=== PATIENT | female | born 1970 | race Caucasian/White ===

== ENCOUNTER 2023-11-29 06:33 | Emergency (ER) | payer BC, SELFPAY ==
[2023-11-29 06:39] VITALS: BP 122/99
--- NOTE | 2023-11-29 07:11 | EDRN ---
Pt received in rm 10, recent dx of URI, on Zpack, c/o burning sensation up her spine with intermittent left leg tingling. Pt also c/o left sided abd pain which she had 'for a while' and recently saw a GI for. NAD noted, awaiting MD mendes.
[2023-11-29 07:15] LABS: COVID-19 Antigen Negative (Negative)
--- NOTE | 2023-11-29 07:59 | ED.GENMED ---
History of Present Illness
<Dominga Eli PA-C - Last Filed: 11/29/23 13:39>
General
Chief Complaint: Weakness
Source: patient
Exam Limitations: none
Time Seen by Provider: 11/29/23 07:05
Nursing documentation reviewed up to this point in time: agreed with
Travel History
Have you had any contact with someone who has COVID-19?: Yes
Comment: daughter
Do you have any symptoms of coronavirus? Fever > 100 degrees, chills, cough, shortness of breath, sore throat, loss of taste or smell, muscle aches, or headache?: Yes
Symptoms:: cough, sore throat, fever
History of Present Illness
History of Present Illness:
53y/o F with h/o celiac, sleep apnea
started 5 days ago feeling some chest discomfort, thought she should come to the hospital but never did
the ches tpain resolve fdand then she developed some URI sxs, nasal congestion, cough with productive mucus;
she had fever to 103
went to pcp 2 days ago and tested neg for flu and covid
was sent home with zithromax
she has taken tylenol cold and sinus for a few days eery 4 hours, 1 tab; and last took dose 2 am
she woke up at 530 am with a shooting burning feeling in her back that shot up to the top of the back and then she felt anxious and lightheaded, broke out in a sweat and then felt like her left arm an dleg were weaker than right side
she called fo rher to take her to the [facility]
she was able to stand despite feeling that her left side was weaker, she never had any
Past History
<Dominga Eli PA-C - Last Filed: 11/29/23 13:39>
Past History
ED Past Medical History: Other (renal calc, neck/back pain, cholecystectomy, anemia, celiac disease, possible hyperparathyroid Vs Sjogrens); Negative HTN, Hypercholesterolemia, IDDM or NIDDM
ED Past Surgical History: Cholecystectomy, Gynecological and Urological (Ureteric stone removal 2000, [address] Marley.)
Social History
Tobacco: Non-smoker
Alcohol: None
Drug: None
Personal:
Living: with family
Employment: Employed ([employer])
Family History
Family History: CAD; Negative Sudden
Phy Exam
<Dominga Eli PA-C - Last Filed: 11/29/23 13:39>
Physical Exam
Physical Exam:
GENERAL: Alert , in no apparent distress, nontoxic
HEAD: NCAT
EYE: pupils equal and reactive, no nystagmus, no photophobia
NECK: Supple,full rom, nontender
ENT: pharynx erythematous, no sinus tenderness, + nasal congestion, ears normal, tolerating secretions
CARDIAC: Regular rate and rhythm . no edema
LUNGS: Clear breath sounds bilaterally, no acute respiratory distress, no wheezes/rales/rhonchi
ABDOMEN: Soft, without focal tenderness, no r/g, no cvat
NEUROLOGICAL: Alert and orientedx 4, cn intact, no facial asymmetry, 5/5 strength in UE/LE, sensation intact, romberg neg, ambulates without assistance, neg pronator drift
SKIN: Warm and dry, skin intact.
MUSCULOSKELETAL: No edema, well perfused.
PSYCH: Normal and appropriate interaction.
Course
<Dominga Eli PA-C - Last Filed: 11/29/23 13:39>
Orders/Labs/Results
Orders:
Orders
11/29/23 06:48
COVID-19 Antigen Urgent
Source: Nasal Swab
Influenza A+B Rapid Molecular Urgent
ELISHA Source: Nasal Swab
Specimen Description:
11/29/23 07:37
Electrocardiogram (*1) Urgent
Reason for Study: Other
Other Reason for Exam: sepsis
Cardiac Monitoring- Treatment ONCE
EKG- Treatment ONCE
0.9% Sodium Chloride 1000 ml [Nss] 1,000 ml IV BOLUS
CR Chest - 2 Views Urgent
Comment:
Reason For Exam: cough, fatigue
11/29/23 07:57
Complete Blood Count/With Diff Urgent
Comprehensive Metabolic Panel Urgent
Lactic Acid Urgent
Magnesium Urgent
Troponin I Urgent
11/29/23 08:31
CT Chest/abd/pelvis Angio W/wo Urgent
Comment:
Reason For Exam: chest pain, back pain, weakness l arm
CT Head W/o Iv Contrast Urgent
Comment:
Reason For Exam: weakness left arm
11/29/23 10:01
Potassium Chloride [KCl] 20 meq PO NOW STA
Abnormal Lab Results
11/29/23
07:57
Absolute Neuts (auto) 7.1 H 10^3/uL
(1.4-6.5)
Lymphocytes % 17.9 L %
(20.5-51.1)
Potassium 3.3 L mmol/L
(3.5-5.1)
Glucose 108 H mg/dl
(70-99)
Lactic Acid 0.6 L mmol/L
(0.7-2.0)
Total Protein 6.0 L g/dl
(6.3-8.2)
11/29/23 07:57
11/29/23 07:57
Vital Signs
Initial and Last Documented VS:
Initial Vital Signs
Temp Pulse Resp BP Pulse Ox
98.6 F 96 20 122/99 97
11/29/23 06:39 11/29/23 06:39 11/29/23 06:39 11/29/23 06:39 11/29/23 06:39
Last Documented Vital Signs
Temp Pulse Resp BP Pulse Ox
98.6 F 74 16 132/83 98
11/29/23 06:39 11/29/23 10:10 11/29/23 10:10 11/29/23 10:10 11/29/23 10:10
<Angelo Garcia MD - Last Filed: 11/29/23 09:42>
Orders/Labs/Results
Orders:
Orders
11/29/23 06:48
COVID-19 Antigen Urgent
Source: Nasal Swab
Influenza A+B Rapid Molecular Urgent
ELISHA Source: Nasal Swab
Specimen Description:
11/29/23 07:37
Electrocardiogram (*1) Urgent
Reason for Study: Other
Other Reason for Exam: sepsis
Cardiac Monitoring- Treatment ONCE
EKG- Treatment ONCE
0.9% Sodium Chloride 1000 ml [Nss] 1,000 ml IV BOLUS
CR Chest - 2 Views Urgent
Comment:
Reason For Exam: cough, fatigue
11/29/23 07:57
Complete Blood Count/With Diff Urgent
Comprehensive Metabolic Panel Urgent
Lactic Acid Urgent
Magnesium Urgent
Troponin I Urgent
11/29/23 08:31
CT Chest/abd/pelvis Angio W/wo Urgent
Comment:
Reason For Exam: chest pain, back pain, weakness l arm
CT Head W/o Iv Contrast Urgent
Comment:
Reason For Exam: weakness left arm
11/29/23 10:01
Potassium Chloride [KCl] 20 meq PO NOW STA
Abnormal Lab Results
11/29/23
07:57
Absolute Neuts (auto) 7.1 H 10^3/uL
(1.4-6.5)
Lymphocytes % 17.9 L %
(20.5-51.1)
Potassium 3.3 L mmol/L
(3.5-5.1)
Glucose 108 H mg/dl
(70-99)
Lactic Acid 0.6 L mmol/L
(0.7-2.0)
Total Protein 6.0 L g/dl
(6.3-8.2)
11/29/23 07:57
11/29/23 07:57
Vital Signs
Initial and Last Documented VS:
Initial Vital Signs
Temp Pulse Resp BP Pulse Ox
98.6 F 96 20 122/99 97
11/29/23 06:39 11/29/23 06:39 11/29/23 06:39 11/29/23 06:39 11/29/23 06:39
Last Documented Vital Signs
Temp Pulse Resp BP Pulse Ox
98.6 F 74 16 132/83 98
11/29/23 06:39 11/29/23 10:10 11/29/23 10:10 11/29/23 10:10 11/29/23 10:10
<Dominga Eli PA-C - Last Filed: 11/29/23 13:39>
MDM/Problems Addressed
Differential Diagnosis Includes:
influenza, covid, electrlyte disturbance, aortic dissection
much less likely stroke
MDM/Problems Addressed:
53 y/o F with h/o celiac, anxuiety
here for days of URI sxs
then woke up to a burning back pain and anxiety feeling followed by weakness left arm or leg
no headache, neck pain, dizziness, vision changes, cp, sob
she had chest pain earlier this week
on exam pt looks nontoxic but has URI
neuro totally intact
tested pos for flu a which is likely to explain most symptoms
however given her recent episode chest pain and now back pain this am with neurosymptoms, eval with CTA c/a/p
neg for dissection
some incidental findings not related to sypmtoms
head ct neg
pt had no objective weakness here
sinus inflammation on ct
already on zithromax, not likely to cover bact dsinus infection well, however probably mroe viral anyway with flu +
offered doxy but pt doesn't tolerate other abx and declined
<Dominga Eli PA-C - Last Filed: 11/29/23 13:39>
*Critical Care Note
Total Time (30-74mins, 75-104mins- exclusive of procedures): Not Applicable
ED Attending Note
<Dominga Eli PA-C - Last Filed: 11/29/23 13:39>
-
Portions of this chart may have been created with voice recognition software.� Occasional wrong word or��sound alike� substitutions may have occurred due to the inherent limitations of voice recognition software.
<Angelo Garcia MD - Last Filed: 11/29/23 09:42>
ED Attending Note
Patient seen and examined by attending physician: Yes
I performed the substantive portion of visit, reviewed & personally made and approve the management plan that is documented in note by myself or WOODY.: Yes
ED Attending Note:
53-year-old female started with chest pain 5 days ago. This lasted a few hours. Later that day she started getting flulike symptoms aches myalgias cough congestion. Those symptoms have continued. She was tested for COVID and flu 2 days ago that
was negative. This morning however she developed a shooting like sharp sensation upper back. This was followed by weakness to the left arm and left leg that was transient and lasted about an hour. No facial droop no speech issues no visual
issues. Patient has no acute neurologic symptoms now. No unusual headache complaining of flulike symptoms of myalgias ache and cough.
On exam patient is nontoxic in no distress. She has nasal congestion. Lungs are clear and equal. Heart regular rate and rhythm no murmur. She has no carotid bruit. Abdomen is nontender. She is nonfocal. She has no drift. Lower extremity
strength is normal speech is normal. Cranial nerves II through XII intact.
Influenza test is positive. Likely her symptoms are all influenza related although admittedly her transient asymmetrical weakness is unusual. Because of the chest pain recently followed by this sharp back pain I dissection study was ordered. Head
CT was ordered. If all stable patient is stable for discharge to follow-up
Discharge Plan
Departure
Patient Disposition: Home (Routine Discharge)
Date of Disposition: 11/29/23
Time of Disposition: 10:13
Patient with high blood pressure during this ER visit?: No
Condition: Fair
Covid-19: Not Applicable
Discharge Problem:
Influenza A, Sinusitis
Instructions: Flu, Adult (DC), Sinusitis, Adult (DC)
Prescriptions:
No Action
multivitamin with folic acid [Tab-A-Khang] 1 TABLET tablet
1 tab PO Q48H
ferrous sulfate [FeroSul] 325 MG tablet
325 mg PO WEEKLY
metoprolol succinate 25 MG tablet extended release 24 hr
25 mg PO 1800
Patient Comments:
reports not taking
cholecalciferol (vitamin D3) 1,000 UNITS tablet
1,000 units PO DAILY
ondansetron 4 mg tablet,disintegrating
4 mg PO Q8H PRN (Reason: nausea and vomiting) Qty: 10 0RF
Referrals:
Aris Shaikh, DO [Family Provider] - Follow up in 5-7 days
Activity Restrictions/Additional Instructions:
YOU TESTED POSITIVE FOR THE FLU WHICH IS LIKELYT HE CAUSE OF ALL OF YOUR SYMPTOMS
WE DID EVALUATE YOU WITH CAT SCANS OF YOUR HEAD AND CHEST/ABDOMEN/PELVIS WHICH SHOWED SOME INCIDENTAL FINDINGS BUT NO CONCERNING CAUSES FOR YOUR WEAKNESS AND CHEST PAIN
YOU HAD SOME SINUS INFLAMMATION
TAKE YOUR ANTIBIOTICS
FLONASE, ZYRTEC ONCE A DAY WELL
DRINK FLUIDS, REST
RETURN FOR WORSENING SYMPTOMS
Interventions
Interventions:
*Risk Screen - Suicide Last Done: 11/29/23 07:04
*General Assessment Last Done: 11/29/23 07:08
*Neglect/Abuse Screening Last Done: 11/29/23 07:04
ED- Fall Risk Assessment Last Done: 11/29/23 10:21
*ED COVID-19 Vaccine History Last Done: 11/29/23 07:04
*Nursing Disposition Last Done: 11/29/23 10:21
ED- Cardiac Assessment Last Done: 11/29/23 07:09
ED- Neurological Assessment Last Done: 11/29/23 07:09
ED- Pulmonary Assessment Last Done: 11/29/23 07:09
Discharge Date and Time
Discharge Date/Time: 11/29/23 10:31
[2023-11-29 08:02] VITALS: BP 132/70
[2023-11-29] MEDS: NSS 1000 IV (08:03)
[2023-11-29 08:21] LABS: % Basophils 0.5 % (0-2); % Eosinophils 1.2 % (0-6); % Immature Granulocytes 0.3 % (0-0.5); % Lymphocytes 17.9 % (20.5-51.1); % Monocytes 5.6 % (1.7-9.3); % Neutrophils 74.5 % (42.2-75.2); Absolute Basophils 0.1 10^3/uL (0-0.2); Absolute Eosinophils 0.1 10^3/uL (0-0.7); Absolute Lymphocytes 1.7 10^3/uL (1.2-3.4); Absolute Monocytes 0.5 10^3/uL (0.1-0.6); Absolute Neutrophils 7.1 10^3/uL (1.4-6.5); Hematocrit 37.1 % (37.0-47.0); Hemoglobin 13.4 g/dL (12.0-16.0); Mean Corp Hgb Conc. 36.1 g/dL (33.0-37.0); Mean Corpuscular Hgb 29.5 pg (27.0-31.0); Mean Corpuscular Volume 81.5 fL (81.0-99.0); Mean Platelet Volume 8.5 fL (7.4-10.4); Nucleated Red Blood Cells % 0 %; Platelet Count 317 10^3/uL (130-400); Red Blood Cell Count 4.55 10^6/uL (4.20-5.40); Red Cell Dist. Width 12.1 % (11.5-14.5); White Blood Cell Count 9.5 10^3/uL (4.8-10.8)
[2023-11-29 08:28] LABS: Lactic Acid 0.6 mmol/L (0.7-2.0)
[2023-11-29 08:29] LABS: ALT (SGPT) 25 U/L (0-35); AST (SGOT) 23 U/L (14-36); Albumin 3.8 g/dl (3.5-5.0); Alkaline Phosphatase 76 U/L (38-126); Blood Urea Nitrogen 10 mg/dl (7-17); Calcium 9.1 mg/dl (8.4-10.2); Carbon Dioxide 30 mmol/L (22-30); Chloride 103 mmol/L (98-107); Glucose 108 mg/dl (70-99); Potassium 3.3 mmol/L (3.5-5.1); Sodium 137 mmol/L (135-145); Total Bilirubin 1.2 mg/dl (0.2-1.3); eGFR > 60.00
[2023-11-29 08:40] LABS: Troponin I < 0.012 ng/ml
[2023-11-29] MEDS: KCL 20 MEQ PO (10:07)
[2023-11-29 10:10] VITALS: BP 132/83
== END 2023-11-29 10:31 | disposition home or self-care (01) ==
LOC: EMR 06:33
PROVIDERS: Physician Assistant; EMERGENCY PHYSICIAN Emergency Medicine; FAMILY PHYSICIAN Internal Medicine
DX: J10.1 Influenza due to other identified influenza virus with other respiratory manifestations (principal); J32.2 Chronic ethmoidal sinusitis; J32.3 Chronic sphenoidal sinusitis; K90.0 Celiac disease; G47.30 Sleep apnea, unspecified; D64.9 Anemia, unspecified; E78.00 Pure hypercholesterolemia, unspecified; F41.9 Anxiety disorder, unspecified; Z82.49 Family history of ischemic heart disease and other diseases of the circulatory system; Z87.442 Personal history of urinary calculi; Z90.49 Acquired absence of other specified parts of digestive tract
CPT/HCPCS: 99284; 96360; 70450; 71046; 71275; 74174; 80053; 83605; 83735; 84484; 85025; 87502; 87811; 93005; Q9967

== ENCOUNTER → 2023-12-04 09:33 | Outpatient (REF) | payer BC, SELFPAY ==
[2023-12-04 11:14] LABS: ALT (SGPT) 28 U/L (0-35); AST (SGOT) 29 U/L (14-36); Albumin 4.4 g/dl (3.5-5.0); Alkaline Phosphatase 81 U/L (38-126); Amylase 68 U/L (30-110); Direct Bilirubin 0.5 mg/dl (0.0-0.4); Lipase 153 U/L (23-300); Total Bilirubin 1.1 mg/dl (0.2-1.3); Total Protein 6.7 g/dl (6.3-8.2)
[2023-12-04 11:19] LABS: Erythrocyte Sed Rate 14 mm/hour (0-20)
[2023-12-04 16:43] LABS: tTG IgA Antibody 3.2 EU/ml (0-19); tTG IgG Antibody 6.5 EU/ml (0-19)
[2023-12-06 00:02] LABS: IgA 126 mg/dl (70-400)
[2023-12-06 21:00] LABS: Endomysial IgA Antibody Titer <1:10 (<1:10)
== END ==
LOC: REG 09:33
PROVIDERS: ATTENDING PHYSICIAN Nurse Practitioner Family; FAMILY PHYSICIAN Internal Medicine
DX: R10.12 Left upper quadrant pain (principal); K90.0 Celiac disease
CPT/HCPCS: 36415; 80076; 82150; 82784; 83516; 83690; 85652; 86140; 86231

== ENCOUNTER → 2023-12-17 08:28 | Outpatient (REF) | payer BC, SELFPAY ==
[2023-12-17 09:18] LABS: % Basophils 1.1 % (0-2); % Eosinophils 2.4 % (0-6); % Immature Granulocytes 0.3 % (0-0.5); % Lymphocytes 31.2 % (20.5-51.1); % Monocytes 6.7 % (1.7-9.3); % Neutrophils 58.3 % (42.2-75.2); Absolute Basophils 0.1 10^3/uL (0-0.2); Absolute Eosinophils 0.2 10^3/uL (0-0.7); Absolute Lymphocytes 2.3 10^3/uL (1.2-3.4); Absolute Monocytes 0.5 10^3/uL (0.1-0.6); Absolute Neutrophils 4.4 10^3/uL (1.4-6.5); Hematocrit 41.6 % (37.0-47.0); Hemoglobin 14.3 g/dL (12.0-16.0); Mean Corp Hgb Conc. 34.4 g/dL (33.0-37.0); Mean Corpuscular Hgb 29.1 pg (27.0-31.0); Mean Corpuscular Volume 84.6 fL (81.0-99.0); Mean Platelet Volume 8.6 fL (7.4-10.4); Nucleated Red Blood Cells % 0 %; Platelet Count 411 10^3/uL (130-400); Red Blood Cell Count 4.92 10^6/uL (4.20-5.40); Red Cell Dist. Width 12.9 % (11.5-14.5); White Blood Cell Count 7.5 10^3/uL (4.8-10.8)
[2023-12-17 09:38] LABS: ALT (SGPT) 22 U/L (0-35); AST (SGOT) 23 U/L (14-36); Albumin 4.6 g/dl (3.5-5.0); Alkaline Phosphatase 71 U/L (38-126); Blood Urea Nitrogen 12 mg/dl (7-17); Calcium 9.7 mg/dl (8.4-10.2); Carbon Dioxide 31 mmol/L (22-30); Chloride 102 mmol/L (98-107); Glucose 107 mg/dl (70-99); Potassium 3.8 mmol/L (3.5-5.1); Sodium 139 mmol/L (135-145); Total Bilirubin 1.7 mg/dl (0.2-1.3); Total Protein 7.1 g/dl (6.3-8.2); eGFR > 60.00
[2023-12-17 09:52] LABS: Free T4 1.21 ng/dl (0.78-2.19)
[2023-12-17 10:06] LABS: TSH 1.28 uIU/ml (0.47-4.68)
[2023-12-18 09:23] LABS: Intact PTH 53.2 pg/ml (13.6-85.8)
== END ==
LOC: REG 08:28
PROVIDERS: ATTENDING PHYSICIAN Internal Medicine
DX: E21.3 Hyperparathyroidism, unspecified (principal); R30.0 Dysuria; E03.8 Other specified hypothyroidism
CPT/HCPCS: 36415; 80053; 83970; 84439; 84443; 85025

== ENCOUNTER 2023-12-26 15:45 | Inpatient (IN) | payer BC, SELFPAY ==
[2023-12-26] VITALS (10 sets, daily range): BP systolic 119–151; BP diastolic 74–103; BMI 27.1
--- NOTE | 2023-12-26 08:20 | ED.GENMED ---
History of Present Illness
General
Chief Complaint: Abdominal Symptoms
Time Seen by Provider: 12/26/23 08:08
Travel History
Have you had any contact with someone who has COVID-19?: No
Do you have any symptoms of coronavirus? Fever > 100 degrees, chills, cough, shortness of breath, sore throat, loss of taste or smell, muscle aches, or headache?: No
History of Present Illness
History of Present Illness:
53-year-old female with history of hypertension and celiac disease presents to the emergency department for evaluation of abrupt onset of abdominal pain associated with nausea, vomiting, and diarrhea developing this morning. She does work at a
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 No ill contacts at home. Denies any recent suspicious food intake. No fevers but does have chills and sweats. Denies any hematemesis or hematochezia. Prior abdominal surgical
history includes a diagnostic laparoscopy as well as cholecystectomy
Past History
Past History
ED Past Medical History: Other (renal calc, neck/back pain, cholecystectomy, anemia, celiac disease, possible hyperparathyroid Vs Sjogrens); Negative HTN, Hypercholesterolemia, IDDM or NIDDM
ED Past Surgical History: Cholecystectomy, Gynecological and Urological (Ureteric stone removal 2000, [address]ley.)
Social History
Tobacco: Non-smoker
Alcohol: None
Drug: None
Personal:
Living: with family
Employment: Employed ([employer])
Family History
Family History: CAD; Negative Sudden
Review of Systems
Review of Systems
Allergies reviewed?: Yes
All Other Systems: ROS reviewed and negative except as documented in HPI and ROS
Phy Exam
Physical Exam
Physical Exam:
GEN: Well appearing, NAD, WDWN
Eyes: PERRLA, EOMs intact, no scleral icterus
HENT: NCAT, oral mucosa moist
Lungs: CTAB, no wheezes, rales, rhonchi, normal chest wall excursion
Cardiac: RRR, no M/R/G, no peripheral edema. Radial pulses 2+ bilat
Abdomen: Soft, mildly tender to the epigastrium, no focal tenderness otherwise, no rigidity
Neuro: AO x 3
MSK: No gross deformity or ecchymosis.
Skin: No rashes, petechiae. Normal color, no pallor or jaundice.
Psych: Calm, cooperative, proper hygiene
Course
Orders/Labs/Results
Orders:
Orders
12/26/23 08:19
0.9% Sodium Chloride 1000 ml [Nss] 1,000 ml IV BOLUS
Ketorolac [Toradol] 15 mg IV NOW STA
Ondansetron Injectable [Zofran] 4 mg IV NOW STA
12/26/23 08:34
Complete Blood Count/With Diff Urgent
Comprehensive Metabolic Panel Urgent
Lipase Urgent
12/26/23 11:06
0.9% Sodium Chloride 1000 ml [Nss] 1,000 ml IV BOLUS
Metoclopramide [Reglan] 10 mg IV NOW STA
12/26/23 11:27
Norovirus by PCR Urgent
ELISHA Source: Feces/Stool
Specimen Description:
Date Specimen was Collected: 12/26/23
Time Specimen was Collected: 11:09
12/26/23 11:48
Ketorolac [Toradol] 15 mg IV NOW STA
12/26/23 14:28
Urinalysis Reflex To Culture Urgent
12/26/23 14:30
Admit/Transfer Patient As Directed
Co-Sign Provider:
Level of Care: Inpatient admission
Assign to:: Medical/Surgical
Physician / Group: Morgan
Diagnosis: Norovirus
Reason for Hospitalization: IVFs, Anti-emetics
Expected length of stay greater than two midnights?: Yes
ELOS- Estimated Length of Stay in days: 3
I certify the patient meets the requirements for IP care: Yes
12/26/23 14:37
Code Status As Directed
Resuscitation Status: Full Code
Abnormal Lab Results
12/26/23
08:34
WBC 16.5 H 10^3/uL
(4.8-10.8)
Abs Immat Gran (auto) 0.1 H 10^3/uL
(0-0.05)
Absolute Neuts (auto) 13.5 H 10^3/uL
(1.4-6.5)
Absolute Monos (auto) 0.9 H 10^3/uL
(0.1-0.6)
Neutrophils % 81.8 H %
(42.2-75.2)
Lymphocytes % 11.6 L %
(20.5-51.1)
Glucose 129 H mg/dl
(70-99)
Total Bilirubin 1.8 H mg/dl
(0.2-1.3)
12/26/23 08:34
12/26/23 08:34
Vital Signs
Initial and Last Documented VS:
Initial Vital Signs
Temp Pulse Resp Pulse Ox
98.8 F 110 16 98
12/26/23 08:05 12/26/23 08:05 12/26/23 08:05 12/26/23 08:05
Last Documented Vital Signs
Temp Pulse Resp BP Pulse Ox
98.8 F 115 20 122/74 98
12/26/23 08:05 12/26/23 13:30 12/26/23 13:30 12/26/23 13:30 12/26/23 13:30
MDM/Problems Addressed
MDM/Problems Addressed:
Symptoms most consistent with acute gastroenteritis, norovirus ultimately positive. The patient was resuscitated with 2 L normal saline, labs are unremarkable. Patient however did not tolerate p.o. fluids after multiple doses of antiemetics, will
place in observation for ongoing IV fluid resuscitation and supportive treatment. Do not see any indication for imaging particular given the positive norovirus test and the presentation most compatible with acute gastroenteritis
*Critical Care Note
Total Time (30-74mins, 75-104mins- exclusive of procedures): Not Applicable
Update Note
Update Note:
1106: Patient with continued vomiting, will give further IV fluids and antiemetics
ED Attending Note
-
Portions of this chart may have been created with voice recognition software.� Occasional wrong word or��sound alike� substitutions may have occurred due to the inherent limitations of voice recognition software.
Discharge Plan
Departure
Patient Disposition: Admit
Date of Disposition: 12/26/23
Time of Disposition: 13:49
Admit to: Med/Surg
Presentation/result/management discussed w/ accepting MD/DO: Hospitalist
Discharge Problem:
Norovirus
Prescriptions:
No Action
ferrous sulfate [FeroSul] 325 MG tablet
325 mg PO FR@0800
Theragen Tablet
1 tab PO Q48H@0800
acetaminophen [Tylenol 8 Hour] 650 mg Tablet Extended Release
650 mg PO DAILY
pantoprazole 40 mg Tablet,Delayed Release (Dr/Ec)
40 mg PO DAILY
cholecalciferol (vitamin D3) 10 mcg (400 unit) Tablet
20 mcg PO DAILY
Referrals:
Aris Shaikh DO [Family Provider] -
Interventions
Interventions:
*ED COVID-19 Vaccine History Last Done: 12/26/23 08:05
[2023-12-26 08:46] LABS: % Basophils 0.4 % (0-2); % Eosinophils 0.7 % (0-6); % Immature Granulocytes 0.4 % (0-0.5); % Lymphocytes 11.6 % (20.5-51.1); % Monocytes 5.1 % (1.7-9.3); % Neutrophils 81.8 % (42.2-75.2); Absolute Basophils 0.1 10^3/uL (0-0.2); Absolute Eosinophils 0.1 10^3/uL (0-0.7); Absolute Immature Granulocytes 0.1 10^3/uL (0-0.05); Absolute Lymphocytes 1.9 10^3/uL (1.2-3.4); Absolute Monocytes 0.9 10^3/uL (0.1-0.6); Absolute Neutrophils 13.5 10^3/uL (1.4-6.5); Hematocrit 42.6 % (37.0-47.0); Hemoglobin 15.2 g/dL (12.0-16.0); Mean Corp Hgb Conc. 35.7 g/dL (33.0-37.0); Mean Corpuscular Hgb 29.3 pg (27.0-31.0); Mean Corpuscular Volume 82.1 fL (81.0-99.0); Mean Platelet Volume 8.3 fL (7.4-10.4); Nucleated Red Blood Cells % 0 %; Platelet Count 342 10^3/uL (130-400); Red Blood Cell Count 5.19 10^6/uL (4.20-5.40); Red Cell Dist. Width 12.8 % (11.5-14.5); White Blood Cell Count 16.5 10^3/uL (4.8-10.8)
[2023-12-26] MEDS: ZOFRAN 4 MG IV (08:56)
[2023-12-26] MEDS: TORADOL 15 MG IV ×2 (08:57→11:55)
[2023-12-26] MEDS: NSS 1000 IV ×3 (09:01→20:14)
[2023-12-26 09:20] LABS: Glucose 129 mg/dl (70-99)
[2023-12-26 09:21] LABS: AST (SGOT) 23 U/L (14-36); Albumin 4.3 g/dl (3.5-5.0); Alkaline Phosphatase 71 U/L (38-126); Blood Urea Nitrogen 13 mg/dl (7-17); Calcium 9.8 mg/dl (8.4-10.2); Carbon Dioxide 28 mmol/L (22-30); Chloride 104 mmol/L (98-107); Potassium 3.6 mmol/L (3.5-5.1); Sodium 141 mmol/L (135-145); Total Bilirubin 1.8 mg/dl (0.2-1.3); eGFR > 60.00
[2023-12-26 09:22] LABS: ALT (SGPT) 22 U/L (0-35)
[2023-12-26 09:57] LABS: Lipase 147 U/L (23-300)
[2023-12-26] MEDS: REGLAN 10 MG IV (11:27)
--- NOTE | 2023-12-26 14:47 | HPS.HSE ---
Addendum entered and electronically signed by Madelyn Mora MD 12/26/23 18:21:
Patient seen and examined independently--agree with PA note
GENERAL: well developed, well nourished, female in no apparent distress
HEENT: NC/AT--no O2
HEART: regular rate and rhythm, +S1, +S2
LUNGS : clear to auscultation bilaterally
ABDOM: soft, nontender, nondistended, + bowel sounds
EXT: no cyanosis, clubbing, or edema
NEUROLOGIC: grossly intact
Sepsis (by criteria present on admission) secondary to Gastroenteritis due to Norovirus--cont IVF--cont anti-emetics--AVOID REGLAN due to severe anxiety following dose given in ED--Allow clear liquids - Advance diet as tolerated
Known 7mm Left Renal Pelvis Calculi--Check urinalysis due to left flank pain--Consider Urology consult - Known to Dr. Villar
GERD--Continue Protonix
Celiac Disease--Gluten Free diet when able to tolerate
DVT proph: SCDs
Code Status: Full Code
Original Note:
Family Physician
-
Family Physician: Aris Shaikh
Chief Complaint
-
Abdominal Pain and Diarrhea
History of Present Illness
Patient is a 53 y/o F with PMH of Celiac disease and renal calculus who presents c/o vomiting, diarrhea, and inability to hold down fluids. She noticed epigastric pain last night and the vomiting and diarrhea started this morning. She tried to sip
Gatorade, but was unable to keep it down. She reports multiple episodes of non-bloody diarrhea this morning. She denies fever but has been getting waves of flushing. She also noted lightheadedness when getting up to use the restroom in the ED. She
denies dysuria, urinary frequency/urgency, urinary retention or hematuria. No one else in her household is experiencing similar symptoms. She reports feeling very anxious after one dose of Reglan in the ED and admits to adverse reactions to many
medications.
Medical History
Past Medical History
Past Medical History: Reports Other
Additional Past Medical History:
Renal Calculi
Celiac Disease
Past Surgical History: Reports Other
Additional Past Surgical History:
Cholecystectomy
Partial Parathyroidectomy
Lithotripsy with Ureteral Stent
Social History
Tobacco: Non-smoker
Alcohol: None
Drug: None
Family History
Family History: Not pertinent
Allergies / Home Medications
Allergies reflects when Allergies were last updated in [facility].
Home Medications with original date entered in [facility]
Allergy/Medication List:
Allergies
Allergy/AdvReac Type Severity Reaction Status Date / Time
latex [Latex] Allergy Severe Anaphylaxis Verified 12/26/23 08:07
cefazolin [From Ancef] Allergy Unknown Unknown Verified 12/26/23 08:07
ciprofloxacin Allergy Unknown Nausea / Verified 12/26/23 08:07
Vomiting/tongue
swelling
levofloxacin Allergy Unknown Nausea / Verified 12/26/23 08:07
Vomiting
adhesive tape Allergy Hives Verified 12/26/23 08:07
ampicillin Allergy FACE Verified 12/26/23 08:07
EDEMATOUS
Cephalosporins Allergy turn red Verified 12/26/23 08:07
morphine Allergy Hives Verified 12/26/23 08:07
Penicillins Allergy turn red Verified 12/26/23 08:07
shellfish derived Allergy tongue Verified 12/26/23 08:07
swell/turn
red
Sulfa (Sulfonamide Allergy Nausea / Verified 12/26/23 08:07
Antibiotics) Vomiting/tongue
swelling
tamsulosin Allergy diarrhea Verified 12/26/23 08:07
Home Medications
ferrous sulfate 325 mg (65 mg iron) tablet (FeroSul) 325 mg PO FR@0800 07/25/21
acetaminophen 650 mg tablet,extended release (Tylenol 8 Hour) 650 mg PO DAILY 12/26/23
cholecalciferol (vitamin D3) 10 mcg (400 unit) tablet 20 mcg PO DAILY 12/26/23
pantoprazole 40 mg tablet,delayed release 40 mg PO DAILY 12/26/23
therapeutic multivitamin 1 tab PO Q48H@0800 12/26/23
Review of Systems
-
A 12 point ROS was completed and negative except as noted: Yes
Constitutional: Reports Other (Chills/Flushing); Denies Fever
Respiratory: Denies Cough or Trouble Breathing
Cardiac: Denies Chest Pain or Palpitations
Abdomen/GI: Reports See HPI
Physical Exam
Vital Signs
Vital Signs
Temp Pulse Resp BP Pulse Ox
98.8 F 115 20 122/74 98
12/26/23 08:05 12/26/23 13:30 12/26/23 13:30 12/26/23 13:30 12/26/23 13:30
Physical Exam
General: Comfortable and Conversant
HEENT: NormoCephalic and Anicteric
Respiratory: Clear and Non Labored Respirations
Cardiac: S1/S2, Regular Rhythm and Tachycardia
GI: Soft and Tender (Epigastric region; Left Flank)
Genito-urinary: Other (Mild tenderness left flank/CVA region)
Skin: Warm and Dry
Neuro: Awake, Alert, Oriented and Nonfocal/grossly intact
Laboratory Results
-
12/26/23 08:34
12/26/23 08:34
Laboratory Results
Total Bilirubin 1.8 mg/dl (0.2-1.3) H 12/26/23 08:34
AST 23 U/L (14-36) 12/26/23 08:34
ALT 22 U/L (0-35) 12/26/23 08:34
Alkaline Phosphatase 71 U/L (38-126) 12/26/23 08:34
Lipase 147 U/L (23-300) 12/26/23 08:34
Data Reviewed
-
Lab Data: Labs Reviewed by me
Impression/Plan
-
Sepsis secondary to Gastroenteritis due to Norovirus
-Continue supportive care
-Continue IVFs
-Continue Zofran for nausea - AVOID REGLAN due to severe anxiety following dose given in ED
-Allow clear liquids - Advance diet as tolerated
Known 7mm Left Renal Pelvis Calculi
-Check urinalysis due to left flank pain
-Consider Urology consult - Known to Dr. Villar
GERD
-Continue Protonix
Celiac Disease
-Gluten Free diet when able to tolerate
DVT proph: SCDs
Code Status: Full Code
[2023-12-26] MEDS: TYLENOL 650 MG PO (21:46)
[2023-12-27 00:35] LABS: Urine Albumin Negative (Neg - Trace); Urine Bilirubin Negative (Negative); Urine Character Clear (Clear); Urine Color Yellow; Urine Glucose Negative (Negative); Urine Ketone Trace (Negative); Urine Leukocyte Trace (Negative); Urine Nitrite Negative (Negative); Urine Occult Blood 1+ (Negative); Urine Urobilinogen Negative (Neg - 1+)
[2023-12-27 01:13] LABS: Urine Mucus Moderate; Urine Squamous Cell >30 /LPF (Few)
[2023-12-27 01:15] LABS: Urine Bacteria Few (Negative)
[2023-12-27] MEDS: TYLENOL 650 MG PO ×4 (03:58→20:40)
[2023-12-27] MEDS: NSS 1000 IV ×3 (03:59→20:39)
[2023-12-27 06:00] VITALS: BMI 27.1
[2023-12-27 06:07] LABS: Hematocrit 35.2 % (37.0-47.0); Hemoglobin 12.5 g/dL (12.0-16.0); Mean Corp Hgb Conc. 35.5 g/dL (33.0-37.0); Mean Corpuscular Hgb 29.4 pg (27.0-31.0); Mean Corpuscular Volume 82.8 fL (81.0-99.0); Mean Platelet Volume 8.6 fL (7.4-10.4); Platelet Count 228 10^3/uL (130-400); Red Blood Cell Count 4.25 10^6/uL (4.20-5.40); Red Cell Dist. Width 12.9 % (11.5-14.5); White Blood Cell Count 6.1 10^3/uL (4.8-10.8)
[2023-12-27 06:43] LABS: Blood Urea Nitrogen 11 mg/dl (7-17); Calcium 8.3 mg/dl (8.4-10.2); Carbon Dioxide 27 mmol/L (22-30); Chloride 104 mmol/L (98-107); Estimated Creatinine Clearance 82 ml/min; Glucose 107 mg/dl (70-99); Magnesium 1.8 mg/dl (1.6-2.3); Sodium 137 mmol/L (135-145); eGFR > 60.00
[2023-12-27 07:15] VITALS: BP 99/74
[2023-12-27] MEDS: PROTONIX IV 40 MG IV (07:35)
[2023-12-27] MEDS: NSS (PRESERVATIVE FREE) 10 ML IV (07:35)
[2023-12-27] MEDS: KCL 270 MEQ IV (07:36)
[2023-12-27] MEDS: KCL 40 MEQ PO (07:36)
--- NOTE | 2023-12-27 08:48 | W.PN.HOSP.TC ---
Today's Communication/Plan
-
advance to gluten free diet
Assessment / Plan
Assessment / Plan
pt is a 53 year old female
Sepsis (by criteria present on admission) secondary to Gastroenteritis due to Norovirus--cont IVF--cont anti-emetics--AVOID REGLAN due to severe anxiety following dose given in ED-- Advance diet as tolerated
hypokalemia--replete--due to GI losses
Known 7mm Left Renal Pelvis Calculi--Check urinalysis due to left flank pain--Consider Urology consult - Known to Dr. Villar
GERD--Continue Protonix
Celiac Disease--Gluten Free diet when able to tolerate
DVT proph: SCDs
Code Status: Full Code
Anticipated Discharge: 24 - 48 hours
Subjective/Interval History
-
Date of Service: December 27, 2023
pt still with voluminous diarrhea
Objective Data
-
Labs:
Laboratory Results
12/27/23
05:31
WBC 6.1
Hgb 12.5
Hct 35.2 L
Plt Count 228 D
Sodium 137
Potassium 3.0 L
Chloride 104
Carbon Dioxide 27
BUN 11
Creatinine 0.7
Glucose 107 H
Calcium 8.3 L D
Vital Signs:
max temp for 24 hours
12/26/23
23:31
Temp 100.0 F
Vital Signs
Temp Pulse Resp BP Pulse Ox
98.1 F 75 16 99/74 97
12/27/23 07:15 12/27/23 07:15 12/27/23 07:15 12/27/23 07:15 12/27/23 07:15
I&O
12/26/23 12/27/23 12/28/23
06:59 06:59 06:59
Intake Total 2019
Balance 2019
Review of Systems
-
All other systems: Reviewed and negative
Abdomen/GI: Reports Diarrhea; Denies Nausea or Vomiting
Physical Exam
-
General: Well Developed, Well Nourished and No Apparent Distress
HEENT: Normocephalic and Atraumatic
Respiratory: Clear to Auscultation; Negative Wheezes, Rhonchi or Crackles
Cardiac: Regular Rhythm and S1/S2; Negative Murmur
GI: Soft, Nontender and Nondistended; Negative Normal Bowel Sounds (hyperactive)
Musculoskeletal: No Clubbing, No Cyanosis and No Edema
Neuro: Awake
Psych: Calm
[2023-12-27 11:20] VITALS: BP 94/57
--- NOTE | 2023-12-27 13:29 | CM ---
Patient seen at bedside yesterday with physician and today Patient states that she lives alone in a 2 story home with no DME. Patient has her car here and uses [facility] in [place] for pharmacy needs. Patient PCP is Dr. Dunham and patient
indicated that she has no needs at this time. CM will continue to follow for discharge planning needs.
Plan; home with no needs.
[2023-12-27 15:35] VITALS: BP 111/72
[2023-12-27 19:27] VITALS: BP 122/73
[2023-12-27] MEDS: REFRESH EYE DROPS (PF) 1 DROPS OPHTH (20:41)
[2023-12-27 23:21] VITALS: BP 127/63
[2023-12-28 03:28] VITALS: BP 118/66
[2023-12-28] MEDS: NSS 1000 IV (04:31)
[2023-12-28 04:54] LABS: Hematocrit 34.5 % (37.0-47.0); Hemoglobin 12.1 g/dL (12.0-16.0); Mean Corp Hgb Conc. 35.1 g/dL (33.0-37.0); Mean Corpuscular Hgb 29.4 pg (27.0-31.0); Mean Corpuscular Volume 83.9 fL (81.0-99.0); Mean Platelet Volume 8.9 fL (7.4-10.4); Platelet Count 215 10^3/uL (130-400); Red Blood Cell Count 4.11 10^6/uL (4.20-5.40)
[2023-12-28 05:17] LABS: Blood Urea Nitrogen 6 mg/dl (7-17); Calcium 8.6 mg/dl (8.4-10.2); Carbon Dioxide 26 mmol/L (22-30); Chloride 110 mmol/L (98-107); Estimated Creatinine Clearance 95 ml/min; Glucose 92 mg/dl (70-99); Magnesium 1.9 mg/dl (1.6-2.3); Potassium 3.5 mmol/L (3.5-5.1); Sodium 139 mmol/L (135-145); eGFR > 60.00
[2023-12-28 08:13] VITALS: BP 120/78
[2023-12-28] MEDS: PROTONIX IV 40 MG IV (08:28)
[2023-12-28] MEDS: NSS (PRESERVATIVE FREE) 10 ML IV (08:28)
--- NOTE | 2023-12-28 09:17 | W.PN.HOSP.TC ---
Today's Communication/Plan
-
d/c
Assessment / Plan
Assessment / Plan
pt is a 53 year old female
Sepsis (by criteria present on admission) secondary to Gastroenteritis due to Norovirus--stop IVF--cont anti-emetics--AVOID REGLAN due to severe anxiety following dose given in ED-- Advance diet as tolerated
hypokalemia--replete--due to GI losses
Known 7mm Left Renal Pelvis Calculi--Check urinalysis due to left flank pain--Consider Urology consult - Known to Dr. Villar
GERD--Continue Protonix
Celiac Disease--Gluten Free diet when able to tolerate
DVT proph: SCDs
Code Status: Full Code
d/c
Anticipated Discharge: Today
Subjective/Interval History
-
Date of Service: December 28, 2023
pt tolerating diet and ready for d/c
Objective Data
-
Labs:
Laboratory Results
12/28/23
04:11
WBC 5.0
Hgb 12.1
Hct 34.5 L
Plt Count 215
Sodium 139
Potassium 3.5
Chloride 110 H
Carbon Dioxide 26
BUN 6 L
Creatinine 0.6
Glucose 92
Calcium 8.6
Vital Signs:
max temp for 24 hours
12/27/23
15:35
Temp 98.4 F
Vital Signs
Temp Pulse Resp BP Pulse Ox
98.2 F 73 15 120/78 98
12/28/23 08:13 12/28/23 08:13 12/28/23 08:13 12/28/23 08:13 12/28/23 08:13
I&O
12/27/23 12/28/23 12/29/23
06:59 06:59 06:59
Intake Total 2019 1380 / 1380
Balance 2019 1380 / 1380
Review of Systems
-
All other systems: Reviewed and negative
Physical Exam
-
General: Well Developed, Well Nourished and No Apparent Distress
HEENT: Normocephalic and Atraumatic
Respiratory: Clear to Auscultation; Negative Wheezes or Rhonchi
Cardiac: Regular Rhythm and S1/S2; Negative Murmur
GI: Soft, Nontender, Nondistended and Normal Bowel Sounds
Musculoskeletal: No Clubbing, No Cyanosis and No Edema
Neuro: Awake
--- NOTE | 2023-12-28 09:18 | CM ---
Patient seen at bedside with physician. Patient with no concerns for discharge home. CM will continue to follow for discharge.
Plan; home with no needs
--- NOTE | 2023-12-28 14:29 | W.DCSUMMARY ---
Discharge Summary
Discharge Data
Date of Admission: 12/26/23
Date of Discharge: 12/28/23
-
Pending Results: No
Hospital Course
Primary care physician : Aris Shaikh
Principal Discharge diagnosis : Sepsis by criteria present on admission due to gastroenteritis from norovirus, hypokalemia
Chronic Discharge diagnosis : Known 7 mm left renal pelvis calculi, gastroesophageal reflux disease, celiac disease
Hospital Course : Patient was 53-year-old female with a history of celiac disease and known renal calculus who presented with vomiting, diarrhea, and inability to hold anything down. She noted epigastric pain on the night prior to admission and
then had subsequent vomiting and diarrhea. She reports multiple episodes of nonbloody diarrhea. She noted lightheadedness when getting up to use the restroom. Patient was checked and found to be norovirus positive. And the patient was admitted.
Problem #1: Sepsis (present on admission by criteria) due to gastroenteritis from norovirus. Patient was admitted and given symptomatic treatment with IV fluids and antiemetics. Patient did well and her diet was advanced. She is stable for
discharge at this time.
Problem #2: Hypokalemia. This was likely from GI losses. Potassium was repleted.
Problem #3: All other medical issues. These include Known 7 mm left renal pelvis calculi, gastroesophageal reflux disease, celiac disease. These medical issues were stable during her hospitalization. Medications were continued as able.
Patient is stable for discharge home at this time. If there are any questions regarding this dictation or her hospital stay, please do not hesitate to call. Our office number is [phone].
Discharge Plan
-
Patient Disposition: Home (Routine Discharge)
Discharge Diagnosis/Procedures: Sepsis present on admission by criteria due to gastroenteritis due to norovirus, hypokalemia due to GI losses, known left renal pelvis calculi, gastroesophageal reflux disease, celiac disease
Condition: Good
Additional Diets: Gluten-free diet
Activity: As tolerated
Driving Restrictions: As prior to admission
Bathing Restrictions: None
Referrals:
Aris Shaikh, DO [Family Provider] - in less than 1 week
Prescriptions:
Continued
ferrous sulfate [FeroSul] 325 MG tablet
325 mg PO FR@0800
therapeutic multivitamin Tablet
1 tab PO Q48H@0800
acetaminophen [Tylenol 8 Hour] 650 mg Tablet Extended Release
650 mg PO DAILY
pantoprazole 40 mg Tablet,Delayed Release (Dr/Ec)
40 mg PO DAILY
cholecalciferol (vitamin D3) 10 mcg (400 unit) Tablet
20 mcg PO DAILY
Discharge Orders:
Discharge Patient (As Directed); Ordered 12/28/23
Ordered By: Madelyn Mora
Discharge Date and Time
Discharge Date/Time: 12/28/23 11:58
== END 2023-12-28 11:58 | disposition home or self-care (01) | DRG 872 ==
LOC: 2 NORTH 15:45
PROVIDERS: Physician Assistant; Physician Assistant Medical; ADMITTING PHYSICIAN Internal Medicine; EMERGENCY PHYSICIAN Emergency Medicine; FAMILY PHYSICIAN Internal Medicine
DX: A41.9 Sepsis, unspecified organism (principal); A08.11 Acute gastroenteropathy due to Norwalk agent; N20.2 Calculus of kidney with calculus of ureter; I10 Essential (primary) hypertension; K90.0 Celiac disease; D64.9 Anemia, unspecified; K21.9 Gastro-esophageal reflux disease without esophagitis; F41.9 Anxiety disorder, unspecified; E87.6 Hypokalemia; Z88.2 Allergy status to sulfonamides; Z88.8 Allergy status to other drugs, medicaments and biological substances; Z88.1 Allergy status to other antibiotic agents; Z91.040 Latex allergy status; Z88.5 Allergy status to narcotic agent; Z88.0 Allergy status to penicillin; Z91.013 Allergy to seafood
CPT/HCPCS: 80048; 80053; 81003; 81015; 83690; 83735; 85025; 85027; 87086; 87798; 96361; 96374; 96375; 96376; 99284

== ENCOUNTER 2024-02-03 01:08 | Emergency (ER) | payer BC, SELFPAY ==
[2024-02-03 01:10] VITALS: BP 174/76
[2024-02-03 01:35] LABS: % Basophils 0.9 % (0-2); % Eosinophils 1.7 % (0-6); % Immature Granulocytes 0.4 % (0-0.5); % Lymphocytes 28.3 % (20.5-51.1); % Monocytes 6.7 % (1.7-9.3); Absolute Basophils 0.1 10^3/uL (0-0.2); Absolute Eosinophils 0.2 10^3/uL (0-0.7); Absolute Lymphocytes 3.1 10^3/uL (1.2-3.4); Absolute Monocytes 0.7 10^3/uL (0.1-0.6); Absolute Neutrophils 6.9 10^3/uL (1.4-6.5); Hematocrit 37.3 % (37.0-47.0); Hemoglobin 13.2 g/dL (12.0-16.0); Mean Corp Hgb Conc. 35.4 g/dL (33.0-37.0); Mean Corpuscular Hgb 29.5 pg (27.0-31.0); Mean Corpuscular Volume 83.3 fL (81.0-99.0); Mean Platelet Volume 8.3 fL (7.4-10.4); Nucleated Red Blood Cells % 0 %; Platelet Count 306 10^3/uL (130-400); Red Blood Cell Count 4.48 10^6/uL (4.20-5.40); Red Cell Dist. Width 12.9 % (11.5-14.5); White Blood Cell Count 11.1 10^3/uL (4.8-10.8)
[2024-02-03 01:51] LABS: ALT (SGPT) 23 U/L (0-35); AST (SGOT) 21 U/L (14-36); Albumin 4.3 g/dl (3.5-5.0); Alkaline Phosphatase 68 U/L (38-126); Blood Urea Nitrogen 13 mg/dl (7-17); Calcium 9.8 mg/dl (8.4-10.2); Carbon Dioxide 26 mmol/L (22-30); Chloride 107 mmol/L (98-107); Glucose 106 mg/dl (70-99); Lipase 180 U/L (23-300); Potassium 3.6 mmol/L (3.5-5.1); Sodium 140 mmol/L (135-145); Total Bilirubin 1.1 mg/dl (0.2-1.3); Total Protein 6.5 g/dl (6.3-8.2); eGFR > 60.00
[2024-02-03 02:03] LABS: Troponin I < 0.012 ng/ml
[2024-02-03 02:48] VITALS: BP 131/86
[2024-02-03 02:50] VITALS: BMI 28.1
[2024-02-03 03:00] VITALS: BP 124/81
--- NOTE | 2024-02-03 03:30 | ED.GENMED ---
History of Present Illness
General
Chief Complaint: Blood Pressure Problem
Source: patient and family
Exam Limitations: none
Time Seen by Provider: 02/03/24 03:21
Nursing documentation reviewed up to this point in time: agreed with
Travel History
Have you had any contact with someone who has COVID-19?: No
Do you have any symptoms of coronavirus? Fever > 100 degrees, chills, cough, shortness of breath, sore throat, loss of taste or smell, muscle aches, or headache?: No
History of Present Illness
History of Present Illness:
This a pleasant 53-year-old female that presents with hypertension. She went to bed and awakened with bloating in her stomach. She did not take her propranolol which she is supposed to take. She went back to sleep and took her blood pressure
after awakening again and found that it to be elevated. Denies chest pain or shortness of breath. Denies fever, chills, nausea or vomiting. She states that she was initially on propranolol every other day and now takes it daily. She reports that
1 other time she had high blood pressure and she had identical abdominal symptoms. Patient is asymptomatic at this time. Her blood pressure is 124/81. Patient wishes to be discharged.
Past History
Past History
ED Past Medical History: Other (renal calc, neck/back pain, cholecystectomy, anemia, celiac disease, possible hyperparathyroid Vs Sjogrens); Negative HTN, Hypercholesterolemia, IDDM or NIDDM
ED Past Surgical History: Cholecystectomy, Gynecological and Urological (Ureteric stone removal 2000, [address] Marley.)
Social History
Tobacco: Non-smoker
Alcohol: None
Drug: None
Personal:
Living: with family
Employment: Employed ([employer])
Family History
Family History: CAD; Negative Sudden
Review of Systems
Review of Systems
Allergies reviewed?: Yes
Other source history: family
All Other Systems: ROS reviewed and negative except as documented in HPI and ROS
Constitutional: Denies fever, fatigue or night sweats
EENT: Reports no symptoms
Respiratory: Reports no symptoms
Cardiac: Reports no symptoms
ABD/GI: Reports abdominal pain
: Reports no symptoms
Musculoskeletal: Reports no symptoms
Skin: Reports no symptoms
Neurological: Reports no symptoms
Endocrine: Reports no symptoms
Hematologic/Lymphatic: Reports no symptoms
Psychiatric: Reports no symptoms
Phy Exam
General Physical Exam
General Presentation: well appearing and no apparent distress
General Skin: warm and dry
General Habitus: normal
General Mental: alert
General Hydration: appears well hydrated
ENT Exam
ENT Exam: EOMI, pharynx normal, neck supple and normocephalic
Eye Exam
Eye Exam: PERRL, cornea clear and conjunctiva normal
Cardiovascular Exam
Cardiovascular Exam: regular rate/rhythm, no edema, no murmur and normal peripheral pulses
Pulmonary Exam
Pulmonary Exam: lungs clear, no respiratory distress, no rales, no crackles, no rhonchi, no stridor, no wheezing and no cough
Gastrointestinal Exam
Gastrointestinal Exam: normal bowel sounds, non tender, soft, no organomegaly, no pulsatile mass and non distended
Neurological Exam
Neurological Exam: alert, oriented x3, no motor deficits and speech normal
Musculoskeletal Exam
Musculoskeletal Exam: full ROM and no edema
Skin Exam
Skin Exam: normal color, warm/dry, no rash and no petechia
Psychiatric Exam
Psychiatric Exam: normal mood/affect
Course
Orders/Labs/Results
Orders:
Orders
02/03/24 01:14
Electrocardiogram (*1) Urgent
Reason for Study: Chest Pain
EKG- Treatment ONCE
02/03/24 01:30
Complete Blood Count/With Diff Urgent
Comprehensive Metabolic Panel Urgent
Lipase Urgent
Troponin I Urgent
Abnormal Lab Results
04/07/24
01:30
WBC 11.1 H 10^3/uL
(4.8-10.8)
Absolute Neuts (auto) 6.9 H 10^3/uL
(1.4-6.5)
Absolute Monos (auto) 0.7 H 10^3/uL
(0.1-0.6)
Glucose 106 H mg/dl
(70-99)
02/03/24 01:30
02/03/24 01:30
Vital Signs
Initial and Last Documented VS:
Initial Vital Signs
Temp Pulse Resp BP Pulse Ox
98.5 F 104 16 174/76 96
02/03/24 01:10 02/03/24 01:10 02/03/24 01:10 02/03/24 01:10 02/03/24 01:10
Last Documented Vital Signs
Temp Pulse Resp BP Pulse Ox
98.5 F 72 18 124/81 99
02/03/24 01:10 02/03/24 02:48 02/03/24 02:48 02/03/24 03:00 02/03/24 02:48
MDM/Problems Addressed
Differential Diagnosis Includes:
Hypertension, electrolyte abnormality
MDM/Problems Addressed:
53-year-old female with 1 episode of elevated blood pressure. On propranolol but did not take it tonight.
Chronic conditions affecting care:
Hypertension, sleep apnea
Chronic conditions affecting care: HTN
Acute Exacerbation and/or Progression of Chronic Illness:
Hypertension
Acute Exacerbation and/or Progression of Chronic Illness: HTN
*Critical Care Note
Total Time (30-74mins, 75-104mins- exclusive of procedures): Not Applicable
Patient Management
Social determinants of health affecting care: Living situation
ED Attending Note
-
Portions of this chart may have been created with voice recognition software.� Occasional wrong word or��sound alike� substitutions may have occurred due to the inherent limitations of voice recognition software.
Discharge Plan
Departure
Patient Disposition: Home (Routine Discharge)
Date of Disposition: 02/03/24
Time of Disposition: 03:35
Patient with high blood pressure during this ER visit?: Yes
Condition: Good
Discharge Problem:
Hypertension
Instructions: High Blood Pressure (DC), BLOOD PRESSURE
Prescriptions:
No Action
ferrous sulfate [FeroSul] 325 MG tablet
325 mg PO FR@0800
therapeutic multivitamin Tablet
1 tab PO Q48H@0800
acetaminophen [Tylenol 8 Hour] 650 mg Tablet Extended Release
650 mg PO DAILY
pantoprazole 40 mg Tablet,Delayed Release (Dr/Ec)
40 mg PO DAILY
cholecalciferol (vitamin D3) 10 mcg (400 unit) Tablet
20 mcg PO DAILY
propranolol 60 mg Capsule,Extended Release 24 Hr
60 mg PO HS
Referrals:
Aris Shaikh DO [Family Provider] -
Activity Restrictions/Additional Instructions:
It was a pleasure meeting you and taking part in your care. We hope for your continued healing and wellness.
Please read discharge instructions in their entirety. However, they are for general education and may not describe your exact diagnosis at discharge. Information on your ER visit and medical conditions were discussed with you along with appropriate
follow up information...
If indicated, please take your medications as instructed and indicated on discharge paperwork.
Please schedule a follow up appointment as directed. Call to schedule an appointment
Please return to the emergency department with ANY change in, persisting, or worsening of symptoms. If any of your symptoms do not improve, or persist, or become more severe within 6-12 hours, please return to the emergency department for further
care.
Please return to the emergency department if you develop a headache, neck pain/stiffness, fever greater than 100.4F, chest pain, shortness of breath, persistent nausea, vomiting, slurred speech, difficulty walking, numbness/tingling, weakness, signs
of infection or any other symptoms that are worrisome to you.
If you have any questions or concerns please do not hesitate to call the Hospital at or E-mail me directly at [email or web address]
Interventions
Interventions:
*Risk Screen - Suicide Last Done: 02/03/24 01:10
*General Assessment Last Done: 02/03/24 01:10
*Neglect/Abuse Screening Last Done: 02/03/24 01:10
ED- Fall Risk Assessment Last Done: 02/03/24 03:13
*ED COVID-19 Vaccine History Last Done: 02/03/24 02:44
ED- Cardiac Assessment Last Done: 02/03/24 03:13
ED- Neurological Assessment Last Done: 02/03/24 03:13
ED- Pulmonary Assessment Last Done: 02/03/24 03:13
Discharge Date and Time
Print Language: [id number]
== END 2024-02-03 03:40 | disposition home or self-care (01) ==
LOC: EMR 01:08
PROVIDERS: EMERGENCY PHYSICIAN Student in an Organized Health Care Education/Training Program; FAMILY PHYSICIAN Internal Medicine
DX: I10 Essential (primary) hypertension (principal)
CPT/HCPCS: 99284; 80053; 83690; 84484; 85025; 93005

== ENCOUNTER → 2024-02-12 08:39 | Outpatient (REF) | payer BC, SELFPAY ==
[2024-02-12 11:06] LABS: ALT (SGPT) 21 U/L (0-35); AST (SGOT) 22 U/L (14-36); Alkaline Phosphatase 71 U/L (38-126); Blood Urea Nitrogen 13 mg/dl (7-17); Calcium 10.3 mg/dl (8.4-10.2); Carbon Dioxide 28 mmol/L (22-30); Chloride 100 mmol/L (98-107); Glucose 103 mg/dl (70-99); Potassium 4.1 mmol/L (3.5-5.1); Sodium 139 mmol/L (135-145); Total Bilirubin 1.3 mg/dl (0.2-1.3); Total Protein 7.3 g/dl (6.3-8.2); eGFR > 60.00
[2024-02-12 11:49] LABS: FSH 26.2 mIU/ml
[2024-02-13 10:24] LABS: Intact PTH 75.3 pg/ml (13.6-85.8)
[2024-02-13 12:40] LABS: Estradiol 19.6 pg/ml
== END ==
LOC: REG 08:39
PROVIDERS: ATTENDING PHYSICIAN Internal Medicine
DX: E21.3 Hyperparathyroidism, unspecified (principal); I15.9 Secondary hypertension, unspecified
CPT/HCPCS: 36415; 80053; 82670; 83001; 83002; 83970; 84439

== ENCOUNTER → 2024-02-21 09:48 | Outpatient (REF) | payer BC, SELFPAY | LOC: HWRAD 09:48 | PROVIDERS: ATTENDING PHYSICIAN Internal Medicine | DX: Z13.820 Encounter for screening for osteoporosis (principal) | CPT/HCPCS: 77080 ==

== ENCOUNTER 2024-03-04 06:08 | Day surgery (SDC) | payer BC, SELFPAY ==
[2024-03-04] VITALS (11 sets, daily range): BP systolic 118–151; BP diastolic 70–87; BMI 28.0
[2024-03-04] MEDS: NORMOSOL-R 1000 IV (07:05)
[2024-03-04] MEDS: Pyridium 200 MG PO (10:09)
[2024-03-06 15:04] LABS: Stone Analysis Mass 13 mg
== END 2024-03-04 10:05 | disposition home or self-care (01) ==
LOC: SDS 06:08
PROVIDERS: ATTENDING PHYSICIAN Specialist; FAMILY PHYSICIAN Internal Medicine
DX: N20.0 Calculus of kidney (principal)
CPT/HCPCS: 52356; 74018; 76000; 82365; C1894; C2617; J1580

== ENCOUNTER 2024-03-09 23:06 | Emergency (ER) | payer BC, SELFPAY ==
[2024-03-09 23:12] VITALS: BP 139/63
[2024-03-09 23:24] VITALS: BMI 27.6
[2024-03-09 23:30] VITALS: BP 118/72
[2024-03-09 23:37] LABS: % Eosinophils 3.1 % (0-6); % Immature Granulocytes 0.2 % (0-0.5); % Lymphocytes 37.6 % (20.5-51.1); % Monocytes 8.4 % (1.7-9.3); % Neutrophils 49.7 % (42.2-75.2); Absolute Basophils 0.1 10^3/uL (0-0.2); Absolute Eosinophils 0.3 10^3/uL (0-0.7); Absolute Lymphocytes 3.7 10^3/uL (1.2-3.4); Absolute Monocytes 0.8 10^3/uL (0.1-0.6); Absolute Neutrophils 4.9 10^3/uL (1.4-6.5); Hemoglobin 13.4 g/dL (12.0-16.0); Mean Corp Hgb Conc. 35.3 g/dL (33.0-37.0); Mean Corpuscular Volume 82.3 fL (81.0-99.0); Mean Platelet Volume 8.3 fL (7.4-10.4); Nucleated Red Blood Cells % 0 %; Platelet Count 311 10^3/uL (130-400); Red Blood Cell Count 4.62 10^6/uL (4.20-5.40); Red Cell Dist. Width 12.5 % (11.5-14.5); White Blood Cell Count 9.9 10^3/uL (4.8-10.8)
[2024-03-09 23:59] LABS: ALT (SGPT) 16 U/L (0-35); AST (SGOT) 17 U/L (14-36); Albumin 4.3 g/dl (3.5-5.0); Alkaline Phosphatase 63 U/L (38-126); Blood Urea Nitrogen 16 mg/dl (7-17); Calcium 10.2 mg/dl (8.4-10.2); Carbon Dioxide 27 mmol/L (22-30); Chloride 104 mmol/L (98-107); Estimated Creatinine Clearance 64 ml/min; Glucose 104 mg/dl (70-99); Potassium 3.6 mmol/L (3.5-5.1); Sodium 142 mmol/L (135-145); Total Bilirubin 1.1 mg/dl (0.2-1.3); Total Protein 6.6 g/dl (6.3-8.2); eGFR > 60.00
[2024-03-10] VITALS (8 sets, daily range): BP systolic 112–137; BP diastolic 61–90; PULSE 74–78
--- NOTE | 2024-03-10 00:47 | ED.GENMED ---
History of Present Illness
<GLORIA Mccarthy - Last Filed: 03/10/24 06:10>
General
Chief Complaint: Weakness
Source: patient
Exam Limitations: none
Time Seen by Provider: 03/10/24 00:03
Nursing documentation reviewed up to this point in time: agreed with
Travel History
Have you had any contact with someone who has COVID-19?: No
Do you have any symptoms of coronavirus? Fever > 100 degrees, chills, cough, shortness of breath, sore throat, loss of taste or smell, muscle aches, or headache?: No
History of Present Illness
History of Present Illness:
This is a 53 year old female with history of HTN, celiac disease, hiatal hernia, renal calculi, hypoparathyroidism, anemia, anxiety who presents to the ED with complain of confusion and disorientation upon waking up from her sleep x2 hours. She
states she woke up and was able to recognize where she was or what her name was. She felt weakness on her left upper extremity, but had full function of it. She walked over to the bathroom and sat on the toilet and felt like she was going to pass
out. She called her daughter who brought her Propranolol, which she takes for her HTN. She states she forgot to take her medication today because she fell asleep before she could do so. She denies LOC or fall injury. She denies numbness or tingling.
She denies stroke like symptoms including loss of extremity function, slurred speech, or facial droop. She sleeps alone and states this event was unwitnessed. She was seen here in November for similar symptoms. She was worked up with a CT head that
was unremarkable.
She recently had a renal stent placement on 03/04/24 due to a 9mm kidney stone. There were no complications of this procedure. She was given Bactrim to take BID x7 days, but she states she only took 1 pill for 3 days before discontinuing it. She
felt like the medication causing her to lose her appetite as she feels full quicker recently. She admits having dysuria and frequency starting yesterday so she restarted her Bactrim. She denies any fevers, chills, headache, chest pain, shortness of
breath. She denies any recent sick contacts or travels.
Past History
<GLORIA Mccarthy - Last Filed: 03/10/24 06:10>
Past History
ED Past Medical History: Other (renal calc, neck/back pain, cholecystectomy, anemia, celiac disease, possible hyperparathyroid Vs Sjogrens); Negative HTN, Hypercholesterolemia, IDDM or NIDDM
ED Past Surgical History: Cholecystectomy, Gynecological and Urological (Ureteric stone removal 2000, [address] Marley.)
Social History
Tobacco: Non-smoker
Alcohol: None
Drug: None
Personal:
Living: with family
Employment: Employed ([employer])
Family History
Family History: CAD; Negative Sudden
Review of Systems
<GLORIA Mccarthy - Last Filed: 03/10/24 06:10>
Review of Systems
Allergies reviewed?: Yes
All Other Systems: Not applicable
Constitutional: Reports no symptoms
EENT: Reports no symptoms
Respiratory: Reports no symptoms
Cardiac: Reports no symptoms
ABD/GI: Reports other (Feeling full quickly after eating)
: Reports dysuria and frequency
Musculoskeletal: Reports no symptoms
Skin: Reports no symptoms
Neurological: Reports weakness (Left upper extremity) and other (Confusion and disorientation upon waking up from her sleep)
Endocrine: Reports no symptoms
Hematologic/Lymphatic: Reports no symptoms
Psychiatric: Reports no symptoms
Phy Exam
<GLORIA Mccarthy - Last Filed: 03/10/24 06:10>
General Physical Exam
General Presentation: well appearing and no apparent distress
General Skin: warm and dry
General Habitus: normal
General Mental: alert
General Hydration: appears well hydrated
ENT Exam
ENT Exam: EOMI, pharynx normal, neck supple and normocephalic
Eye Exam
Eye Exam: PERRL, cornea clear and conjunctiva normal
Cardiovascular Exam
Cardiovascular Exam: regular rate/rhythm, no edema, no murmur and normal peripheral pulses
Pulmonary Exam
Pulmonary Exam: lungs clear, no respiratory distress, no rales, no crackles, no rhonchi, no stridor, no wheezing and no cough
Gastrointestinal Exam
Gastrointestinal Exam: normal bowel sounds, non tender, soft, no organomegaly, no pulsatile mass and non distended
Neurological Exam
Neurological Exam: alert, oriented x3, no motor deficits and speech normal
Musculoskeletal Exam
Musculoskeletal Exam: full ROM and no edema
Skin Exam
Skin Exam: normal color, warm/dry, no rash and no petechia
Psychiatric Exam
Psychiatric Exam: normal mood/affect
Course
<GLORIA Mccarthy - Last Filed: 03/10/24 06:10>
Orders/Labs/Results
Orders:
Orders
03/09/24 23:27
EKG- Treatment ONCE
03/09/24 23:29
Complete Blood Count/With Diff Urgent
Comprehensive Metabolic Panel Urgent
03/10/24
Electrocardiogram (*1) Stat
Reason for Study: Fatigue / Weakness
03/10/24 00:12
Orthostatic VS- Treatment ONCE
03/10/24 00:45
Urinalysis Reflex To Culture Urgent
Date Specimen was Collected: 03/10/24
Time Specimen was Collected: 00:41
Urine Microscopic Reflex Cult Urgent
Urine Culture Urgent
ELISHA Source: U
Specimen Description:
Date Specimen was Collected: 03/10/24
Time Specimen was Collected: 00:41
Abnormal Lab Results
03/09/24 03/10/24
23:29 00:45
Absolute Lymphs (auto) 3.7 H 10^3/uL
(1.2-3.4)
Absolute Monos (auto) 0.8 H 10^3/uL
(0.1-0.6)
Glucose 104 H mg/dl
(70-99)
Ur Occult Blood Reflex 4+ A
(Negative)
Leukocyte Esterase Rfl 1+ A
(Negative)
Urine RBC 70-80 A /HPF
(0-2)
Urine WBC (Reflex) 16-20 A /HPF
(0-5)
Urine Bacteria (Reflex) Moderate A
(Negative)
Urine Albumin (Reflex) 1+ A
(Neg - Trace)
03/09/24 23:29
03/09/24 23:29
Vital Signs
Initial and Last Documented VS:
Initial Vital Signs
Temp Pulse Resp BP Pulse Ox
98.0 F 79 22 139/63 99
03/09/24 23:12 03/09/24 23:12 03/09/24 23:12 03/09/24 23:12 03/09/24 23:12
Last Documented Vital Signs
Temp Pulse Resp BP Pulse Ox
98.0 F 71 11 112/61 97
03/09/24 23:12 03/10/24 01:45 03/10/24 01:45 03/10/24 01:30 03/10/24 01:45
<iLanet Matthews, DO - Last Filed: 03/10/24 01:54>
Orders/Labs/Results
Orders:
Orders
03/09/24 23:27
EKG- Treatment ONCE
03/09/24 23:29
Complete Blood Count/With Diff Urgent
Comprehensive Metabolic Panel Urgent
03/10/24
Electrocardiogram (*1) Stat
Reason for Study: Fatigue / Weakness
03/10/24 00:12
Orthostatic VS- Treatment ONCE
03/10/24 00:45
Urinalysis Reflex To Culture Urgent
Date Specimen was Collected: 03/10/24
Time Specimen was Collected: 00:41
Urine Microscopic Reflex Cult Urgent
Urine Culture Urgent
ELISHA Source: U
Specimen Description:
Date Specimen was Collected: 03/10/24
Time Specimen was Collected: 00:41
Abnormal Lab Results
03/09/24 03/10/24
23:29 00:45
Absolute Lymphs (auto) 3.7 H 10^3/uL
(1.2-3.4)
Absolute Monos (auto) 0.8 H 10^3/uL
(0.1-0.6)
Glucose 104 H mg/dl
(70-99)
Ur Occult Blood Reflex 4+ A
(Negative)
Leukocyte Esterase Rfl 1+ A
(Negative)
Urine RBC 70-80 A /HPF
(0-2)
Urine WBC (Reflex) 16-20 A /HPF
(0-5)
Urine Bacteria (Reflex) Moderate A
(Negative)
Urine Albumin (Reflex) 1+ A
(Neg - Trace)
03/09/24 23:29
03/09/24 23:29
Vital Signs
Initial and Last Documented VS:
Initial Vital Signs
Temp Pulse Resp BP Pulse Ox
98.0 F 79 22 139/63 99
03/09/24 23:12 03/09/24 23:12 03/09/24 23:12 03/09/24 23:12 03/09/24 23:12
Last Documented Vital Signs
Temp Pulse Resp BP Pulse Ox
98.0 F 71 11 112/61 97
03/09/24 23:12 03/10/24 01:45 03/10/24 01:45 03/10/24 01:30 03/10/24 01:45
<GLORIA Mccarthy - Last Filed: 03/10/24 06:10>
MDM/Problems Addressed
Differential Diagnosis Includes:
CVA, PE, UTI
<GLORIA Mccarthy - Last Filed: 03/10/24 06:10>
*Critical Care Note
Total Time (30-74mins, 75-104mins- exclusive of procedures): Not Applicable
<Lianet Matthews DO - Last Filed: 03/10/24 01:54>
*Pulse Oximetry
Patient hypoxic: no
*EKG
Interpreted by ED Provider?: Yes
Interpretation: normal
Comparison EKG: no changes (Unchanged from previous February 03, 2024 save for heart rate has decreased from 91 to now 67)
Rate: normal
Rhythm: sinus
[place]: normal axis
Interval: normal interval
QRS Pattern: normal QRS
Ischemia: no ischemia
*Cell Tuber Machine Interpretation
Rate: normal
Interpretation: normal
Rhythm: sinus
ED Attending Note
<GLORIA Mccarthy - Last Filed: 03/10/24 06:10>
-
Portions of this chart may have been created with voice recognition software.� Occasional wrong word or��sound alike� substitutions may have occurred due to the inherent limitations of voice recognition software.
<Lianet Matthews DO - Last Filed: 03/10/24 01:54>
ED Attending Note
Patient seen and examined by attending physician: Yes
I performed the substantive portion of visit, reviewed & personally made and approve the management plan that is documented in note by myself or WOODY.: Yes
I performed a history and physical exam of patient and discussed management with resident, I reviewed resident's note and agree with documented findings and plan of care.: Yes
ED Attending Note:
This is a 53-year-old woman who has history of hyperparathyroidism status post parathyroidectomy approximately 7 years ago. She also has history of hypertension, maintained on propranolol, history of celiac disease and more recently has had
intermittent left flank pain and found to have a 9 mm renal pelvic stone for which she underwent lithotripsy with stone extraction on March [address] Villar. She has a ureteral stent in place that is scheduled to be removed on March 11.
She was prescribed Macrobid twice daily after the procedure but admits to adverse reactions to multiple medications thus she has only been taking the Macrobid once a day with last dose on March 08.
Patient awoke this evening feeling somewhat confused immediately after waking and then quickly got up out of bed and began to feel lightheaded, dizzy. She called her daughter for assistance and was able to walk into the bathroom and void
uneventfully with no episode of vomiting nor diarrhea, no syncope nor fall. She states her daughter eventually checked her blood pressure and it was somewhat elevated at 154/90. She was due for her propranolol and took her usual dose at that time.
She continues to feel 'not well' but cannot further elaborate. She has not had a fever nor chills. She does admit to early satiety and a somewhat decreased appetite over the past several days but has had no significant nausea and no vomiting. No
chest pain or palpitations, no cough no shortness of breath, no diarrhea or constipation. She does admit to mild dysuria this evening but has had no hematuria, no flank pain.
Confusion after waking quickly resolved.
GENERAL: 53-year-old woman appears her stated age, awake and alert, pleasant, appears in no acute distress. Vital signs within normal limits. is accompanying.
EYE: pupils equal. anicteric
NECK: Supple, nontender, no meningismus, no significant adenopathy.
ENT: oral mucosa is moist. No rhinorrhea
CARDIAC: Regular rate and rhythm. no murmur.
LUNGS: Clear breath sounds bilaterally, no acute respiratory distress, no wheezes/rales/rhonchi
ABDOMEN: Soft, nondistended, without focal tenderness, no r/g, no cvat. normoactive BS.
NEUROLOGICAL: Alert and oriented x3, no focal neuro deficits. Gait is steady.
SKIN: Warm and dry, normal color, skin intact. No rash.
MUSCULOSKELETAL: No C/C/E. peripheral pulses are full and equal b/l. No palpable tenderness.
PSYCH: Normal and appropriate interaction.
Patient presents after a brief confusional state that occurred promptly upon waking, quickly resolved. No recurrent episodes of confusion.
She also noted an episode of lightheadedness, near syncope after quickly getting up out of bed that I suspect is vasovagal versus orthostasis in nature.
Recent lithotripsy, stone removal with stent placement March 04.
She has been poorly compliant with Macrobid and does note mild dysuria, concern for UTI, concern for potential early sepsis.
Will check labs, urinalysis as well as orthostatic vital signs.
03/10/2024 0138 AM
Labs are unremarkable with normal white blood cell count, normal H&H, normal chemistries.
Urinalysis concerning for UTI with 70-80 RBCs, 16-20 WBCs, moderate bacteria.
She remains afebrile and orthostatic vital signs are negative.
Recommend resumption of Macrobid and to take this twice daily as directed.
Discussed importance of remaining well-hydrated on a daily basis.
I suspect her brief confusion upon waking was related to a deep dream state.
Prompt follow-up with urology as already scheduled and follow-up with PCP as well.
Discharge Plan
Departure
Patient Disposition: Home (Routine Discharge)
Date of Disposition: 03/10/24
Time of Disposition: 01:33
Patient with high blood pressure during this ER visit?: No
Condition: Good
Discharge Problem:
Vasovagal episode, Bacteriuria, Confusional arousals
Instructions: Near Fainting (DC)
Prescriptions:
No Action
ferrous sulfate [FeroSul] 325 MG tablet
325 mg PO WE
acetaminophen [Tylenol 8 Hour] 650 mg Tablet Extended Release
650 mg PO DAILY
pantoprazole 40 mg Tablet,Delayed Release (Dr/Ec)
40 mg PO DAILY
propranolol 60 mg Capsule,Extended Release 24 Hr
60 mg PO HS
cholecalciferol (vitamin D3) [Vitamin D3] 25 mcg (1,000 unit) Capsule
25 mcg PO DAILY
polymyxin B sulf-trimethoprim Drops
1 drp OPHTHALMIC (EYE) DAILY
Referrals:
Aris Shaikh DO [Family Provider] -
Benjamin Villar MD [Active] - Keep scheduled appt
Activity Restrictions/Additional Instructions:
Stay well-hydrated on a daily basis.
Resume nitrofurantoin; try and take this twice daily with a small snack.
Follow-up with urology tomorrow as scheduled.
Interventions
Interventions:
*Risk Screen - Suicide Last Done: 03/09/24 23:12
*General Assessment Last Done: 03/09/24 23:12
*Neglect/Abuse Screening Last Done: 03/09/24 23:12
ED- Fall Risk Assessment Last Done: 03/09/24 23:24
*ED COVID-19 Vaccine History Last Done: 03/09/24 23:24
*Nursing Disposition Last Done: 03/10/24 02:05
ED- Cardiac Assessment Last Done: 03/09/24 23:24
ED- Neurological Assessment Last Done: 03/09/24 23:24
ED- Pulmonary Assessment Last Done: 03/09/24 23:24
Discharge Date and Time
Discharge Date/Time: 03/10/24 02:05
Print Language: GREEK
[2024-03-10 01:06] LABS: Urine Albumin 1+ (Neg - Trace); Urine Bilirubin Negative (Negative); Urine Character Clear (Clear); Urine Color Yellow; Urine Glucose Negative (Negative); Urine Ketone Negative (Negative); Urine Leukocyte 1+ (Negative); Urine Nitrite Negative (Negative); Urine Occult Blood 4+ (Negative); Urine Specific Gravity 1.015 (<1.030); Urine Urobilinogen Negative (Neg - 1+)
[2024-03-10 01:25] LABS: Urine Bacteria Moderate (Negative); Urine Calcium Oxalate Crystals Seen; Urine Red Blood Cell 70-80 /HPF (0-2); Urine White Cell 16-20 /HPF (0-5)
== END 2024-03-10 02:05 | disposition home or self-care (01) ==
LOC: EMR 23:06
PROVIDERS: EMERGENCY PHYSICIAN Emergency Medicine; FAMILY PHYSICIAN Internal Medicine
DX: R55 Syncope and collapse (principal); R82.71 Bacteriuria; G47.51 Confusional arousals; I10 Essential (primary) hypertension; K90.0 Celiac disease; K44.9 Diaphragmatic hernia without obstruction or gangrene; E20.9 Hypoparathyroidism, unspecified; D64.9 Anemia, unspecified; F41.9 Anxiety disorder, unspecified; Z82.49 Family history of ischemic heart disease and other diseases of the circulatory system; Z87.442 Personal history of urinary calculi; Z90.49 Acquired absence of other specified parts of digestive tract
CPT/HCPCS: 99283; 80053; 81003; 81015; 85025; 87086; 93005

== ENCOUNTER 2024-04-25 15:19 | Emergency (ER) | payer BC, SELFPAY ==
[2024-04-25 15:27] VITALS: BP 115/80
[2024-04-25 16:33] VITALS: BP 123/75
[2024-04-25 17:00] VITALS: BP 133/115
--- NOTE | 2024-04-25 17:06 | ED.GENMED ---
History of Present Illness
<GEOVANY Aguilar - Last Filed: 04/25/24 20:06>
General
Chief Complaint: Dizziness
Source: patient
Exam Limitations: none
Time Seen by Provider: 04/25/24 16:38
Nursing documentation reviewed up to this point in time: agreed with
History of Present Illness
History of Present Illness:
53 yr old female with past medical history of hyperparathyroidism hypertension presents to the ER for evaluation. She reports on Sunday 5 days ago she was sleeping with her eyes and then noticed that the room was spinning. This lasted for couple
minutes. She had additional episode Sunday several days later. Today she was at work stood up and cannot focus on pictures that were on the wall and also had trouble focusing on letters on a piece of paper. She reports the letters were all
running together. One letter looked like 3 letters. She denies any associate headache with this. Denies any trauma.
Past History
<GEOVANY Aguilar - Last Filed: 04/25/24 20:06>
Past History
ED Past Medical History: Other (renal calc, neck/back pain, cholecystectomy, anemia, celiac disease, possible hyperparathyroid Vs Sjogrens); Negative HTN, Hypercholesterolemia, IDDM or NIDDM
ED Past Surgical History: Cholecystectomy, Gynecological and Urological (Ureteric stone removal 2000, [address] Marley.)
Social History
Tobacco: Non-smoker
Alcohol: None
Drug: None
Personal:
Living: with family
Employment: Employed ([employer])
Family History
Family History: CAD; Negative Sudden
Review of Systems
<GEOVANY Aguilar - Last Filed: 04/25/24 20:06>
Review of Systems
Allergies reviewed?: Yes
All Other Systems: ROS reviewed and negative except as documented in HPI and ROS
Constitutional: Reports no symptoms; Denies fever, fatigue or chills
EENT: Reports no symptoms
Respiratory: Reports no symptoms
Cardiac: Reports no symptoms
ABD/GI: Reports no symptoms; Denies nausea or vomiting
Musculoskeletal: Reports no symptoms
Skin: Reports no symptoms
Neurological: Reports no symptoms
Psychiatric: Reports no symptoms
Phy Exam
<GEOVANY Aguilar - Last Filed: 04/25/24 20:06>
General Physical Exam
General Presentation: no apparent distress
General age: appears stated age
General Skin: warm and dry
General Habitus: normal
General Mental: alert
General Hydration: appears well hydrated
Eye Exam
Eye Exam: PERRL and EOMI
Eye Exam General: PERRL: bilateral and EOM intact: bilateral
Pupil Exam: Bilateral: round and reactive
Neurological Exam
Neurological Exam: alert, oriented x3, no motor deficits, no sensory deficits and speech normal
NIH Stroke Score
Level of Consciousness: 0 - Alert
LOC questions: 0-Answers both correctly
LOC Commands: 0-Performs both correctly
Best Gaze: 0-Normal
Visual Ybarra: 0=Normal, no visual loss
Facial palsy: 0=Normal, symmetrical
Motor - Right Arm: 0=No drift 10 seconds
Motor - Left Arm: 0=No drift 10 seconds
Motor - Right Le-No drift 5 seconds
Motor - Left Le-No drift 5 seconds
Limb Ataxia: 0-Absent
Sensation: 0-Normal
Best Language: 0-No aphasia
Dysarthria: 0-Normal
Extinction and Inattention: 0-No abnormality
Total Score:: 0
[place] Coma Scale
Eye Opening: Spontaneous
Verbal Response: Oriented
Motor Response: Obeys Commands
GCS Total Score: 15
Cerebellar
Cerebellar Function: normal finger to nose
Musculoskeletal Exam
Musculoskeletal Exam: full ROM
Skin Exam
Skin Exam: normal color and warm/dry
Psychiatric Exam
Psychiatric Exam: normal mood/affect
<Davion Agarwal DO - Last Filed: 04/25/24 20:06>
NIH Stroke Score
Total Score:: 0
[place] Coma Scale
GCS Total Score: 15
Course
<GEOVANY Aguilar - Last Filed: 04/25/24 20:06>
Orders/Labs/Results
Orders:
Orders
04/25/24 15:35
ECG [Electrocardiogram (*1)] Urgent
Reason for Study: Vertigo / Dizzy
EKG- Treatment ONCE
04/25/24 16:49
IV Insert/Care/Rem.- Treatment PRN
04/25/24 17:04
CT Head W/o Iv Contrast Urgent
Comment:
Reason For Exam: dizziness
04/25/24 17:05
Complete Blood Count/With Diff Urgent
Comprehensive Metabolic Panel Urgent
04/25/24 19:57
Aspirin Chewable [Low Strength Aspirin] 81 mg PO NOW STA
Abnormal Lab Results
04/25/24
17:05
WBC 11.1 H 10^3/uL
(4.8-10.8)
Absolute Neuts (auto) 7.4 H 10^3/uL
(1.4-6.5)
04/25/24 17:05
04/25/24 17:05
Vital Signs
Initial and Last Documented VS:
Initial Vital Signs
Temp Pulse Resp BP Pulse Ox
98.5 F 67 18 115/80 98
04/25/24 15:27 04/25/24 15:27 04/25/24 15:27 04/25/24 15:27 04/25/24 15:27
Last Documented Vital Signs
Temp Pulse Resp BP Pulse Ox
98.5 F 71 21 116/37 99
04/25/24 15:27 04/25/24 19:31 04/25/24 19:31 04/25/24 19:31 04/25/24 19:31
Whipped Topping Supervisor consulted with Physician
Whipped Topping Supervisor consulted with physician?: Yes
Name of Physician Consulted: Azael
<Davion Agarwal, DO - Last Filed: 04/25/24 20:06>
Orders/Labs/Results
Orders:
Orders
04/25/24 15:35
ECG [Electrocardiogram (*1)] Urgent
Reason for Study: Vertigo / Dizzy
EKG- Treatment ONCE
04/25/24 16:49
IV Insert/Care/Rem.- Treatment PRN
04/25/24 17:04
CT Head W/o Iv Contrast Urgent
Comment:
Reason For Exam: dizziness
04/25/24 17:05
Complete Blood Count/With Diff Urgent
Comprehensive Metabolic Panel Urgent
04/25/24 19:57
Aspirin Chewable [Low Strength Aspirin] 81 mg PO NOW STA
Abnormal Lab Results
04/25/24
17:05
WBC 11.1 H 10^3/uL
(4.8-10.8)
Absolute Neuts (auto) 7.4 H 10^3/uL
(1.4-6.5)
04/25/24 17:05
04/25/24 17:05
Vital Signs
Initial and Last Documented VS:
Initial Vital Signs
Temp Pulse Resp BP Pulse Ox
98.5 F 67 18 115/80 98
04/25/24 15:27 04/25/24 15:27 04/25/24 15:27 04/25/24 15:27 04/25/24 15:27
Last Documented Vital Signs
Temp Pulse Resp BP Pulse Ox
98.5 F 71 21 116/37 99
04/25/24 15:27 04/25/24 19:31 04/25/24 19:31 04/25/24 19:31 04/25/24 19:31
<GEOVANY Aguilar - Last Filed: 04/25/24 20:06>
MDM/Problems Addressed
MDM/Problems Addressed:
Patient is a 53-year-old female who presented to the ER complaining of intermittent room spinning sensation for the past several days mostly associated at nighttime when opening her eyes in the middle of the night awakening from sleep. Today she
had an episode of blurred vision which the prompted her to come to the ER. She denies vertigo here. Denies any recent trauma headache. She has hypertension but no other past medical history. Denies any recent trauma chiropractic manipulation.
Low suspicion for stroke,/dissection. Patient no acute distress looks well no focal neurological deficits. Pt eval by ED attending. CT head neg.
case d/c w/ neuro DR Mayank Mukherjee. no further workup will
<GEOVANY Aguilar - Last Filed: 04/25/24 20:06>
*Critical Care Note
Total Time (30-74mins, 75-104mins- exclusive of procedures): Not Applicable
<GEOVANY Aguilar - Last Filed: 04/25/24 20:06>
Patient Management
Discussion with other providers: Inspector Packer (neuro Dr Mayank Mukherjee )
ED Attending Note
<GEOVANY Aguilar - Last Filed: 04/25/24 20:06>
-
Portions of this chart may have been created with voice recognition software.� Occasional wrong word or��sound alike� substitutions may have occurred due to the inherent limitations of voice recognition software.
<Davion Agarwal DO - Last Filed: 04/25/24 20:06>
ED Attending Note
Patient seen and examined by attending physician: Yes
I performed the substantive portion of visit, reviewed & personally made and approve the management plan that is documented in note by myself or WOODY.: Yes
ED Attending Note:
53-year-old female presents with symptoms as noted above. Her symptoms for the most part are at night in the middle of the night. She does admit to history of obstructive sleep apnea but has not been wearing her BiPAP. Patient does state that
today when she looked up at some pictures had some blurred vision. Her other symptoms were vertiginous in nature where she woke up and the room was spinning. They have been self-limited and again only in the middle the night. She denies focal
motor weakness, numbness, tingling, loss of vision. She denies neck pain. She denies neck injury or head injury. Exam: Normal [id number], no pronator drift, normal gait, extraocular muscles intact. Assessment plan: No vision loss, no change
in extraocular motion. CT negative. Question whether obstructive sleep apnea could be playing a least a little bit of role. MACHINE SANDER was able to follow-up with neurology. Anticipate outpatient management
Discharge Plan
Departure
Patient Disposition: Home (Routine Discharge)
Date of Disposition: 04/25/24
Time of Disposition: 19:57
Patient with high blood pressure during this ER visit?: No
Condition: Fair
Covid-19: Not Applicable
Discharge Problem:
Vertigo
Instructions: Vertigo (a Type of Dizziness) (DC)
Prescriptions:
No Action
ferrous sulfate [FeroSul] 325 MG tablet
325 mg PO WE
acetaminophen [Tylenol 8 Hour] 650 mg Tablet Extended Release
650 mg PO DAILY
pantoprazole 40 mg Tablet,Delayed Release (Dr/Ec)
40 mg PO DAILY
propranolol 60 mg Capsule,Extended Release 24 Hr
60 mg PO HS
cholecalciferol (vitamin D3) [Vitamin D3] 25 mcg (1,000 unit) Capsule
25 mcg PO DAILY
polymyxin B sulf-trimethoprim Drops
1 drp OPHTHALMIC (EYE) DAILY
Referrals:
Aris Shaikh DO [Family Provider] -
Mayank Mukherjee MD [Active] -
Activity Restrictions/Additional Instructions:
As discussed take 1 baby aspirin (81 mg ) every day. Call neurology on Sunday for an appointment soon as possible. You may also call the family doctor as discussed to return her to the ER if any worsening of symptoms if worsening dizziness or
lightheadedness headaches upper or lower extremity numbness tingling weakness difficulty speaking, neck pain or any further concerns.
Interventions
Interventions:
*Risk Screen - Suicide Last Done: 04/25/24 15:27
*General Assessment Last Done: 04/25/24 15:27
*Neglect/Abuse Screening Last Done: 04/25/24 15:27
ED- Fall Risk Assessment Last Done: 04/25/24 17:10
ED- Neurological Assessment Last Done: 04/25/24 17:10
ED- Cardiac Assessment Last Done: 04/25/24 17:10
ED Swallowing Screen Last Done: 04/25/24 17:10
Discharge Date and Time
Print Language: DANISH
[2024-04-25 17:10] VITALS: BMI 27.9
[2024-04-25 17:15] LABS: % Basophils 0.7 % (0-2); % Eosinophils 1.6 % (0-6); % Immature Granulocytes 0.2 % (0-0.5); % Monocytes 5.6 % (1.7-9.3); % Neutrophils 66.9 % (42.2-75.2); Absolute Basophils 0.1 10^3/uL (0-0.2); Absolute Eosinophils 0.2 10^3/uL (0-0.7); Absolute Lymphocytes 2.8 10^3/uL (1.2-3.4); Absolute Monocytes 0.6 10^3/uL (0.1-0.6); Absolute Neutrophils 7.4 10^3/uL (1.4-6.5); Hematocrit 37.5 % (37.0-47.0); Hemoglobin 13.2 g/dL (12.0-16.0); Mean Corp Hgb Conc. 35.2 g/dL (33.0-37.0); Mean Corpuscular Hgb 29.5 pg (27.0-31.0); Mean Corpuscular Volume 83.7 fL (81.0-99.0); Mean Platelet Volume 8.5 fL (7.4-10.4); Nucleated Red Blood Cells % 0 %; Platelet Count 300 10^3/uL (130-400); Red Blood Cell Count 4.48 10^6/uL (4.20-5.40); Red Cell Dist. Width 12.4 % (11.5-14.5); White Blood Cell Count 11.1 10^3/uL (4.8-10.8)
[2024-04-25 17:36] LABS: ALT (SGPT) 18 U/L (0-35); AST (SGOT) 20 U/L (14-36); Albumin 4.5 g/dl (3.5-5.0); Alkaline Phosphatase 65 U/L (38-126); Blood Urea Nitrogen 16 mg/dl (7-17); Calcium 9.9 mg/dl (8.4-10.2); Carbon Dioxide 27 mmol/L (22-30); Chloride 105 mmol/L (98-107); Estimated Creatinine Clearance 75 ml/min; Glucose 96 mg/dl (70-99); Potassium 4.1 mmol/L (3.5-5.1); Sodium 140 mmol/L (135-145); Total Bilirubin 1.1 mg/dl (0.2-1.3); Total Protein 6.6 g/dl (6.3-8.2); eGFR > 60.00
[2024-04-25 19:31] VITALS: BP 116/37
[2024-04-25 20:00] VITALS: BP 102/83
[2024-04-25] MEDS: LOW STRENGTH ASPIRIN 81 MG PO (20:08)
== END 2024-04-25 20:20 | disposition home or self-care (01) ==
LOC: EMR 15:19
PROVIDERS: Nurse Practitioner; EMERGENCY PHYSICIAN Emergency Medicine; FAMILY PHYSICIAN Internal Medicine
DX: R42 Dizziness and giddiness (principal); E21.3 Hyperparathyroidism, unspecified; I10 Essential (primary) hypertension
CPT/HCPCS: 99284; 70450; 80053; 85025; 93005

== ENCOUNTER → 2024-05-07 12:23 | Outpatient (REF) | payer BC, SELFPAY ==
[2024-05-10 01:47] LABS: HSV 1/2 Combined Screen, IgG 0.36 IV
== END ==
LOC: REG 12:23
PROVIDERS: ATTENDING PHYSICIAN Internal Medicine
DX: K12.1 Other forms of stomatitis (principal)
CPT/HCPCS: 36415; 86658; 86694

== ENCOUNTER → 2024-06-02 10:13 | Outpatient (REF) | payer BC, SELFPAY ==
[2024-06-02 10:42] LABS: Ionized Calcium 1.22 mMOL/L (1.15-1.33)
[2024-06-02 11:54] LABS: Calcium 10.3 mg/dl (8.4-10.2)
[2024-06-02 11:58] LABS: Vitamin D, 25-OH*** 42.9 ng/mL (30-80)
[2024-06-04 10:56] LABS: Intact PTH 36.6 pg/ml (13.6-85.8)
== END ==
LOC: REG 10:13
PROVIDERS: ATTENDING PHYSICIAN Surgery; FAMILY PHYSICIAN Internal Medicine
DX: E21.0 Primary hyperparathyroidism (principal)
CPT/HCPCS: 36415; 82306; 82330; 83970

== ENCOUNTER → 2024-06-18 06:17 | Day surgery (SDC) | payer BC, SELFPAY | LOC: GI 06:17 | PROVIDERS: ATTENDING PHYSICIAN Internal Medicine Gastroenterology; FAMILY PHYSICIAN Internal Medicine | DX: Z12.11 Encounter for screening for malignant neoplasm of colon (principal); K57.30 Diverticulosis of large intestine without perforation or abscess without bleeding; K64.8 Other hemorrhoids; R12 Heartburn; R10.12 Left upper quadrant pain; K31.7 Polyp of stomach and duodenum; K90.0 Celiac disease; K31.89 Other diseases of stomach and duodenum; K29.50 Unspecified chronic gastritis without bleeding | CPT/HCPCS: 45380; 43239; 88305; 88342 ==

== ENCOUNTER → 2024-07-07 12:00 | Outpatient (REF) | payer BC, SELFPAY | LOC: DHSLP 12:00 | PROVIDERS: ATTENDING PHYSICIAN Internal Medicine Critical Care Medicine; FAMILY PHYSICIAN Internal Medicine | DX: G47.33 Obstructive sleep apnea (adult) (pediatric) (principal) | CPT/HCPCS: 95800 ==

== ENCOUNTER 2024-08-05 22:53 | Emergency (ER) | payer BC, SELFPAY ==
[2024-08-05 23:03] VITALS: BP 131/103
[2024-08-05 23:31] LABS: % Basophils 1.1 % (0-2); % Eosinophils 3.5 % (0-6); % Immature Granulocytes 0.1 % (0-0.5); % Lymphocytes 36.3 % (20.5-51.1); % Monocytes 8.6 % (1.7-9.3); % Neutrophils 50.4 % (42.2-75.2); Absolute Basophils 0.1 10^3/uL (0-0.2); Absolute Eosinophils 0.3 10^3/uL (0-0.7); Absolute Lymphocytes 3.1 10^3/uL (1.2-3.4); Absolute Monocytes 0.7 10^3/uL (0.1-0.6); Absolute Neutrophils 4.3 10^3/uL (1.4-6.5); Hematocrit 37.2 % (37.0-47.0); Hemoglobin 13.5 g/dL (12.0-16.0); Mean Corp Hgb Conc. 36.3 g/dL (33.0-37.0); Mean Corpuscular Hgb 30.2 pg (27.0-31.0); Mean Corpuscular Volume 83.2 fL (81.0-99.0); Mean Platelet Volume 8.4 fL (7.4-10.4); Nucleated Red Blood Cells % 0 %; Platelet Count 305 10^3/uL (130-400); Red Blood Cell Count 4.47 10^6/uL (4.20-5.40); Red Cell Dist. Width 12.1 % (11.5-14.5); White Blood Cell Count 8.6 10^3/uL (4.8-10.8)
[2024-08-05 23:52] LABS: ALT (SGPT) 24 U/L (0-35); AST (SGOT) 19 U/L (14-36); Albumin 4.6 g/dl (3.5-5.0); Alkaline Phosphatase 57 U/L (38-126); Blood Urea Nitrogen 11 mg/dl (7-17); Carbon Dioxide 26 mmol/L (22-30); Chloride 103 mmol/L (98-107); Glucose 160 mg/dl (70-99); Potassium 3.2 mmol/L (3.5-5.1); Sodium 142 mmol/L (135-145); Total Bilirubin 1.2 mg/dl (0.2-1.3); Total Protein 6.7 g/dl (6.3-8.2); eGFR > 60.00
[2024-08-06 01:35] VITALS: BP 123/66
[2024-08-06 02:00] VITALS: BP 113/67
[2024-08-06] MEDS: TYLENOL 1000 MG PO (02:08)
--- NOTE | 2024-08-06 02:09 | ED.GENMED ---
History of Present Illness
General
Chief Complaint: Blood Pressure Problem
Source: patient
Exam Limitations: none
Time Seen by Provider: 08/06/24 01:17
History of Present Illness
History of Present Illness:
This is a 54 year old female that comes in with c/o headache. States that she was sleeping and she went to bed after dinner. States that she awoke and went to the BR and she felt nauseated like she would vomit or pass out. States that she felt like
her head and chest were going to explode. States that she put her pulse ox on and her HR was elevated she believes to 170 and her BP was up. States that she did see her PCP yesterday as she has an upper respritory infection and she was started on a
Z-pack. States that she has a headache on the top of her head that goes down into the left sided of her face. Statest hat her pulse ox was normal. Denies any fever, chills, chest pain, SOB, abd pain, vomiting, diarrhea, dizziness, urinary burning.
Past History
Past History
ED Past Medical History: HTN, Psychiatric (Anxiety) and Other (renal calc, neck/back pain, anemia, celiac disease, Sleep apnea, Hiatal hernia, Hypoparathyroid); Negative Hypercholesterolemia, IDDM or NIDDM
ED Past Surgical History: Cholecystectomy, Gynecological (D&C's), Urological (Ureteric stone removal 2000, [address] Marley. Renal stent) and Other (partial parathyroidectomy)
Social History
Tobacco: Non-smoker
Alcohol: None
Drug: None
Personal:
Living: with family
Employment: Employed ([employer])
Family History
Family History: CAD; Negative Sudden
Review of Systems
Review of Systems
All Other Systems: ROS reviewed and negative except as documented in HPI and ROS
Constitutional: Reports no symptoms; Denies fever or chills
EENT: Reports no symptoms
Respiratory: Reports no symptoms; Denies cough or trouble breathing
Cardiac: Reports no symptoms; Denies chest pain
ABD/GI: Reports nausea; Denies abdominal pain, vomiting or diarrhea
: Reports no symptoms; Denies dysuria, frequency or urgency
Musculoskeletal: Reports no symptoms
Skin: Reports no symptoms
Neurological: Reports headache; Denies dizzy
Psychiatric: Reports no symptoms
Phy Exam
General Physical Exam
General Presentation: well appearing and no apparent distress
General age: appears stated age
General Skin: warm and dry
General Habitus: normal
General Mental: alert
General Hydration: appears well hydrated
ENT Exam
ENT Exam: TM's normal, pharynx normal and neck supple
Eye Exam
Eye Exam: EOMI
Cardiovascular Exam
Cardiovascular Exam: regular rate/rhythm, no edema, no murmur and normal peripheral pulses
Pulmonary Exam
Pulmonary Exam: lungs clear, no respiratory distress, no rales, chest non tender, no crackles, no rhonchi, no wheezing and no cough
Gastrointestinal Exam
Gastrointestinal Exam: normal bowel sounds, non tender, soft, no organomegaly, no pulsatile mass and non distended
Musculoskeletal Exam
Musculoskeletal Exam: full ROM and no edema
Skin Exam
Skin Exam: normal color, warm/dry, no rash and no petechia
Psychiatric Exam
Psychiatric Exam: normal mood/affect
Course
Orders/Labs/Results
Orders:
Orders
08/05/24 23:14
Electrocardiogram (*1) Urgent
Reason for Study: Vertigo / Dizzy
EKG- Treatment ONCE
08/05/24 23:17
CMP [Comprehensive Metabolic Panel] Urgent
Complete Blood Count/With Diff Urgent
08/06/24 01:36
CT Head W/o Iv Contrast Urgent
Comment:
Reason For Exam: Headache, top and left sided facial
Acetaminophen [Tylenol] 1,000 mg PO NOW STA
Abnormal Lab Results
08/05/24
23:17
Absolute Monos (auto) 0.7 H 10^3/uL
(0.1-0.6)
Potassium 3.2 L mmol/L
(3.5-5.1)
Glucose 160 H mg/dl
(70-99)
08/05/24 23:17
08/05/24 23:17
Potassium very slightly low, hyperglycemia.
Vital Signs
Initial and Last Documented VS:
Initial Vital Signs
Temp Pulse Resp BP Pulse Ox
98.8 F 92 16 131/103 97
08/05/24 23:03 08/05/24 23:03 08/05/24 23:03 08/05/24 23:03 08/05/24 23:03
Last Documented Vital Signs
Temp Pulse Resp BP Pulse Ox
98.8 F 66 14 111/55 97
08/05/24 23:03 08/06/24 02:00 08/06/24 02:00 08/06/24 02:30 08/06/24 02:30
MDM/Problems Addressed
Differential Diagnosis Includes:
Headache, Sleep apnea
MDM/Problems Addressed:
This is a 54 year old female that awoke from sleep and started to feel nauseated to so went to the bathroom. States that she had a headache that was on the top of her head and down into the left sided of her face. States that her Heart rate was
elevated along with her BP. States that she just did a sleep study and is due to get the results this week.
will check labs. CT head. Patient BP at this time is 123/66 with a heart rate of 85. Patient still feels a little nauseated but is feeling better.
back into see patient. Patient was sleeping but arouses easily. States that her headache was gone. Explained that her blood work is normal along with the CT of her head. Feels that this was related to her sleep apnea. Will discharge patient home.
Chronic conditions affecting care:
Sleep apnea
Acute Exacerbation and/or Progression of Chronic Illness:
Sleep apnea,
*Radiology
Radiology exam reviewed: radiology read reviewed (CT head night hawk- No acute intracranial hemorhage, mass effect, or midliine shift. Holden-wyate differentiation is intact. Ventricles and sulci are unremarkable. 9mm calcified extra-axial focus along
the left frontal lobe, could represent an osteoma or meningioma. )
*Pulse Oximetry
Patient hypoxic: no
*EKG
Interpreted by ED Provider?: Yes
Heart Rate: 87
Rate: normal
Rhythm: sinus
Seguin: normal axis
Interval: normal interval
QRS Pattern: normal QRS
Ischemia: non-specific ST changes (V3, V4, )
*Assembler Wire Mesh Gate Interpretation
Rate: Assembler Wire Mesh Gate- N/A
*Critical Care Note
Total Time (30-74mins, 75-104mins- exclusive of procedures): Not Applicable
ED Attending Note
-
Portions of this chart may have been created with voice recognition software.� Occasional wrong word or��sound alike� substitutions may have occurred due to the inherent limitations of voice recognition software.
Discharge Plan
Departure
Patient Disposition: Home (Routine Discharge)
Date of Disposition: 08/06/24
Time of Disposition: 04:04
Patient with high blood pressure during this ER visit?: No
Condition: Good
Covid-19: Not Applicable
Discharge Problem:
Headache
Instructions: Headache, Adult ED
Prescriptions:
No Action
ferrous sulfate [FeroSul] 325 MG tablet
325 mg PO WE
acetaminophen [Tylenol 8 Hour] 650 mg Tablet Extended Release
650 mg PO DAILY
pantoprazole 40 mg Tablet,Delayed Release (Dr/Ec)
40 mg PO DAILY
propranolol 60 mg Capsule,Extended Release 24 Hr
60 mg PO HS
cholecalciferol (vitamin D3) [Vitamin D3] 25 mcg (1,000 unit) Capsule
25 mcg PO DAILY
polymyxin B sulf-trimethoprim Drops
1 drp OPHTHALMIC (EYE) DAILY
Referrals:
Aris Shaikh, DO [Family Provider] - Follow up in 2-3 days
Activity Restrictions/Additional Instructions:
As discussed, your blood work shows that your potassium is very slightly low. Please try eating a banana daily. Otherwise your blood work is normal. Your CT of the head is normal. This may just have been a reaction to your sleep apnea. Please follow
up with the family doctor and the geophysical support specialist for further evaluation. Tylenol for any headache pain. IF YOU HAVE ANY OTHER CONCERNS PLEASE RETURN TO THE EMERGENCY ROOM.
Interventions
Interventions:
*Risk Screen - Suicide Last Done: 08/05/24 23:03
*Neglect/Abuse Screening Last Done: 08/05/24 23:03
ED- Fall Risk Assessment Last Done: 08/06/24 01:35
*ED COVID-19 Vaccine History Last Done: 08/05/24 23:03
ED- Cardiac Assessment Last Done: 08/06/24 01:35
ED- Neurological Assessment Last Done: 08/06/24 01:35
ED- Pulmonary Assessment Last Done: 08/06/24 01:35
Discharge Date and Time
Print Language: AZERBAIJANI
[2024-08-06 02:30] VITALS: BP 111/55
[2024-08-06 03:00] VITALS: BP 122/67
== END 2024-08-06 04:44 | disposition home or self-care (01) ==
LOC: EMR 22:53
PROVIDERS: Student in an Organized Health Care Education/Training Program; EMERGENCY PHYSICIAN Emergency Medicine; FAMILY PHYSICIAN Internal Medicine
DX: R51.9 Headache, unspecified (principal); G47.30 Sleep apnea, unspecified
CPT/HCPCS: 99285; 70450; 80053; 85025; 93005

== ENCOUNTER → 2024-08-18 11:52 | Outpatient (REF) | payer BC, SELFPAY ==
[2024-08-18 12:39] LABS: Urine Albumin Trace (Neg - Trace); Urine Bilirubin 1+ (Negative); Urine Character Clear (Clear); Urine Color Yellow; Urine Glucose Negative (Negative); Urine Ketone Trace (Negative); Urine Leukocyte 1+ (Negative); Urine Nitrite Negative (Negative); Urine Occult Blood Negative (Negative); Urine Specific Gravity 1.025 (<1.030); Urine Urobilinogen Negative (Neg - 1+)
[2024-08-18 14:06] LABS: ALT (SGPT) 22 U/L (0-35); AST (SGOT) 20 U/L (14-36); Albumin 4.9 g/dl (3.5-5.0); Alkaline Phosphatase 56 U/L (38-126); Blood Urea Nitrogen 16 mg/dl (7-17); Carbon Dioxide 29 mmol/L (22-30); Chloride 102 mmol/L (98-107); Glucose 85 mg/dl (70-99); Magnesium 1.9 mg/dl (1.6-2.3); Potassium 4.1 mmol/L (3.5-5.1); Sodium 143 mmol/L (135-145); Total Bilirubin 1.5 mg/dl (0.2-1.3); eGFR > 60.00
[2024-08-18 14:59] LABS: Urine Squamous Cell 16-20 /LPF (Few)
[2024-08-18 15:00] LABS: Urine Bacteria Moderate (Negative); Urine White Cell 26-30 /HPF (0-5)
== END ==
LOC: REG 11:52
PROVIDERS: ATTENDING PHYSICIAN Specialist; FAMILY PHYSICIAN Internal Medicine
DX: N39.0 Urinary tract infection, site not specified (principal); N20.0 Calculus of kidney; E87.6 Hypokalemia
CPT/HCPCS: 36415; 74018; 80053; 81003; 81015; 83735; 87086

== ENCOUNTER → 2024-09-02 13:43 | Outpatient (REF) | payer BC, SELFPAY ==
[2024-09-02 15:05] LABS: Urine Albumin Negative (Neg - Trace); Urine Bilirubin Negative (Negative); Urine Character Clear (Clear); Urine Color Yellow; Urine Glucose Negative (Negative); Urine Ketone Negative (Negative); Urine Leukocyte Negative (Negative); Urine Nitrite Negative (Negative); Urine Occult Blood Negative (Negative); Urine Urobilinogen Negative (Neg - 1+)
== END ==
LOC: RCS 13:43
PROVIDERS: ATTENDING PHYSICIAN Internal Medicine Cardiovascular Disease; FAMILY PHYSICIAN Internal Medicine
DX: I10 Essential (primary) hypertension (principal); E21.3 Hyperparathyroidism, unspecified
CPT/HCPCS: 81003; 93306

== ENCOUNTER → 2024-10-27 08:24 | Outpatient (REF) | payer BC, SELFPAY ==
[2024-10-27 09:23] LABS: % Basophils 1.3 % (0-2); % Eosinophils 2.1 % (0-6); % Immature Granulocytes 0.3 % (0-0.5); % Lymphocytes 31.8 % (20.5-51.1); % Monocytes 6.3 % (1.7-9.3); % Neutrophils 58.2 % (42.2-75.2); Absolute Basophils 0.1 10^3/uL (0-0.2); Absolute Eosinophils 0.2 10^3/uL (0-0.7); Absolute Lymphocytes 2.5 10^3/uL (1.2-3.4); Absolute Monocytes 0.5 10^3/uL (0.1-0.6); Absolute Neutrophils 4.5 10^3/uL (1.4-6.5); Hematocrit 40.3 % (37.0-47.0); Hemoglobin 13.9 g/dL (12.0-16.0); Mean Corp Hgb Conc. 34.5 g/dL (33.0-37.0); Mean Corpuscular Hgb 29.4 pg (27.0-31.0); Mean Corpuscular Volume 85.2 fL (81.0-99.0); Mean Platelet Volume 8.5 fL (7.4-10.4); Nucleated Red Blood Cells % 0 %; Platelet Count 378 10^3/uL (130-400); Red Blood Cell Count 4.73 10^6/uL (4.20-5.40); Red Cell Dist. Width 12.2 % (11.5-14.5); White Blood Cell Count 7.8 10^3/uL (4.8-10.8)
[2024-10-27 09:25] LABS: Free T4 1.25 ng/dl (0.78-2.19); Vitamin D, 25-OH*** 30.1 ng/mL (30-80)
[2024-10-27 09:34] LABS: ALT (SGPT) 21 U/L (0-35); AST (SGOT) 20 U/L (14-36); Albumin 4.5 g/dl (3.5-5.0); Alkaline Phosphatase 53 U/L (38-126); Blood Urea Nitrogen 14 mg/dl (7-17); Calcium 9.8 mg/dl (8.4-10.2); Carbon Dioxide 27 mmol/L (22-30); Chloride 102 mmol/L (98-107); Glucose 117 mg/dl (70-99); Iron 124 ug/dl (37-170); Potassium 4.1 mmol/L (3.5-5.1); Sodium 140 mmol/L (135-145); Total Bilirubin 1.3 mg/dl (0.2-1.3); Total Protein 6.7 g/dl (6.3-8.2); eGFR > 60.00
[2024-10-27 09:43] LABS: Percent Saturation 41 % (20-50); Total Iron Binding Capacity 298 ug/dl (265-497)
[2024-10-29 09:35] LABS: Intact PTH 54.6 pg/ml (13.6-85.8)
== END ==
LOC: REG 08:24
PROVIDERS: ATTENDING PHYSICIAN Internal Medicine
DX: D50.8 Other iron deficiency anemias (principal); E87.6 Hypokalemia; E21.3 Hyperparathyroidism, unspecified; R53.83 Other fatigue; E55.9 Vitamin D deficiency, unspecified
CPT/HCPCS: 36415; 80053; 82306; 82728; 83540; 83550; 83970; 84439; 84443; 85025

== ENCOUNTER → 2025-03-20 10:14 | Outpatient (REF) | payer BC, SELFPAY ==
[2025-03-20 10:43] LABS: % Basophils 1.3 % (0-2); % Eosinophils 2.2 % (0-6); % Immature Granulocytes 0.1 % (0-0.5); % Neutrophils 56.4 % (42.2-75.2); Absolute Basophils 0.1 10^3/uL (0-0.2); Absolute Eosinophils 0.2 10^3/uL (0-0.7); Absolute Lymphocytes 2.2 10^3/uL (1.2-3.4); Absolute Monocytes 0.5 10^3/uL (0.1-0.6); Absolute Neutrophils 3.8 10^3/uL (1.4-6.5); Hematocrit 39.3 % (37.0-47.0); Hemoglobin 13.6 g/dL (12.0-16.0); Mean Corp Hgb Conc. 34.6 g/dL (33.0-37.0); Mean Corpuscular Hgb 29.8 pg (27.0-31.0); Mean Corpuscular Volume 86.2 fL (81.0-99.0); Mean Platelet Volume 8.7 fL (7.4-10.4); Nucleated Red Blood Cells % 0 %; Platelet Count 326 10^3/uL (130-400); Red Blood Cell Count 4.56 10^6/uL (4.20-5.40); Red Cell Dist. Width 12.3 % (11.5-14.5); White Blood Cell Count 6.8 10^3/uL (4.8-10.8)
[2025-03-20 11:13] LABS: ALT (SGPT) 19 U/L (0-35); AST (SGOT) 17 U/L (14-36); Albumin 4.6 g/dl (3.5-5.0); Alkaline Phosphatase 62 U/L (38-126); Blood Urea Nitrogen 12 mg/dl (7-17); Calcium 9.6 mg/dl (8.4-10.2); Carbon Dioxide 27 mmol/L (22-30); Chloride 110 mmol/L (98-107); Glucose 118 mg/dl (70-99); HDL Cholesterol 66 mg/dl; LDL Cholesterol, Calculated 103 mg/dl; Potassium 4.1 mmol/L (3.5-5.1); Sodium 144 mmol/L (135-145); Total Bilirubin 1.2 mg/dl (0.2-1.3); Total Cholesterol 178 mg/dl (50-199); Total Protein 6.7 g/dl (6.3-8.2); Triglyceride 49 mg/dl (10-149); Very Low Density Lipoprotein 9 mg/dl (0-30); eGFR > 60.00
[2025-03-20 11:26] LABS: Free T4 1.13 ng/dl (0.78-2.19); Vitamin D, 25-OH*** 32.7 ng/mL (30-80)
[2025-03-20 11:38] LABS: TSH 0.64 uIU/ml (0.47-4.68)
[2025-03-20 13:07] LABS: Glycohemoglobin (HgbA1c) 5.8 % (4.0-5.6)
[2025-03-21 10:02] LABS: Intact PTH 81.5 pg/ml (13.6-85.8)
== END ==
LOC: REG 10:14
PROVIDERS: ATTENDING PHYSICIAN Internal Medicine
DX: E21.3 Hyperparathyroidism, unspecified (principal); R53.83 Other fatigue; E55.9 Vitamin D deficiency, unspecified; R73.9 Hyperglycemia, unspecified; E03.8 Other specified hypothyroidism
CPT/HCPCS: 36415; 80053; 80061; 82306; 83036; 83970; 84439; 84443; 85025

== ENCOUNTER 2025-05-19 03:11 | Emergency (ER) | payer BC, SELFPAY ==
[2025-05-19 03:22] VITALS: BP 146/78
[2025-05-19 03:38] VITALS: BP 141/88
[2025-05-19 03:44] VITALS: BMI 29.9
--- NOTE | 2025-05-19 03:50 | ED.GENMED ---
History of Present Illness
General
Chief Complaint: Throat Problem
Source: patient
Exam Limitations: none
Time Seen by Provider: 05/19/25 03:31
Nursing documentation reviewed up to this point in time: agreed with
History of Present Illness
History of Present Illness:
Note:
CHIEF COMPLAINT(S)
The patient presented with a sensation of raspiness in the throat following the aspiration of gastric acid.
HISTORY OF PRESENT ILLNESS
The patient is a 54-year-old female with a history of celiac disease, HTN, JONAH, who reports waking up with a burning sensation in her throat and an episode of coughing after aspirating what she describes as 'acid'. This episode was followed by a
persistent raspiness in her throat. This awoke her from sleep. This has happened to patient once before. The patient has also been experiencing a feeling of fullness in her stomach and back for approximately one week, alongside a sensation of
fullness in the right ear, which was evaluated by her doctor but found unremarkable. She also describes a persistent left-sided lump sensation in her throat, which she associates with allergic reactions, often relieved by Benadryl. The patient uses
20 mg of prescription omeprazole daily for reflux but has not been able to refill her medication to increase the dosage to 40 mg. Additionally, she took Pepsid as a precautionary measure before her visit to the hospital. The patient mentioned mild
discomfort in her chest post-aspiration and episodic discomfort when pressure is applied to her abdomen. She denies shortness of breath or residual coughing. Patient reports that she has an allergy to shellfish recently consumed codfish and instant
mashed potatoes, which she associates with throat discomfort due to allergies. She has a hx of celiac disease and she has multiple allergies, including latex and shellfish, which complicates her dietary choices. Despite feeling symptoms of reflux,
she denies any throat burning or difficulty swallowing outside of the left-sided lump sensation. She denies any nausea or vomiting, fevers or chills.
CHRONIC MEDICAL CONDITIONS SIGNIFICANTLY AFFECTING CARE
Celiac disease, sleep apnea, htn, hypoparathyroidism
MEDICATIONS
Omeprazole 20 mg daily
Pepsid (as needed)
Benadryl (as needed)
REVIEW OF SYSTEMS
- Gastrointestinal: Experiencing fullness in the stomach and intermittent stomach discomfort.
- Respiratory: Post-aspiration coughing episodes, resultant raspiness, and prior sensation of chest tightness.
- Ear, Nose, and Throat: Right ear fullness, sensation of a lump in the throat.
PHYSICAL EXAM
Nursing notes reviewed and vital signs reviewed.
General: Patient is well appearing and in no acute distress; non-toxic
Skin: Warm and dry, no rashes or lesions
Head: Normocephalic, atraumatic
Eyes: Sclera non-icteric. EOMs intact.
Neck: No lymphadenopathy
Mouth: No tongue or lip swelling. No pharyngeal erythema. Uvula midline no uvular edema.
Cardiac: Regular rate and rhythm, no murmurs
Pulm: Normal respiratory effort, no wheezes, rales, rhonchi
Abdomen: No abdominal tenderness to palpation
Neuro: CN II-XII intact, no focal neurologic deficits.
Psychiatric: Appropriate mood and affect.
PROBLEM LIST
Acute Problems:
- Aspiration event with unresolved throat raspiness
- Sensation of fullness in stomach
Chronic Problems:
- Celiac disease
PLAN
1. Conduct blood work to exclude other potential causes for symptoms and assess the patients current health status.
2. Review allergies comprehensively to guide treatment selection, particularly before administering medications for reflux.
3. Consider administration of sucralfate or a suitable gastroprotective agent if compatible with the patients allergies.
4. Discuss with the patient the potential need to escalate omeprazole dosage after refilling her prescription, on advisement of her primary care physician.
DIFFERENTIAL DIAGNOSIS
The Differential Diagnosis includes, in no particular order and is not limited to:
Gastroesophageal reflux disease, Laryngopharyngeal reflux, Allergic reaction, Hiatal hernia, Peptic ulcer disease, Gastritis, Esophageal stricture, Eosinophilic esophagitis, Cardiac arrhythmia or myocardial ischemia
MDM/DISCHARGE
The patient is a 54-year-old female with a history of celiac disease, HTN, JONAH, who reports waking up with a burning sensation in her throat and an episode of coughing after aspirating what she describes as 'acid'. This episode was followed by a
persistent raspiness in her throat. Patient reports that the symptoms improved with benadryl and pepcid at home. In the ER she was given carafate with a notable improvement in her voice and her symptoms. Suspect GERD, doubt allergic reaction. She
states she felt swelling on the left side of her neck earlier but on exam today, she has no cervical lymphadenopathy. She has no uvular edema. Her lung sounds are clear. Patient denies shortness of breath, coughing has resolved. Patient feeling much
better and stable for discharge, discussed follow up with PCP and signs of aspiration pneumonia to look out for and strict return precautions. Patient stable for discharge.
Past History
Past History
ED Past Medical History: HTN, Psychiatric (Anxiety) and Other (renal calc, neck/back pain, anemia, celiac disease, Sleep apnea, Hiatal hernia, Hypoparathyroid); Negative Hypercholesterolemia, IDDM or NIDDM
ED Past Surgical History: Cholecystectomy, Gynecological (D&C's), Urological (Ureteric stone removal 2000, [address] Marley. Renal stent) and Other (partial parathyroidectomy)
Social History
Tobacco: Non-smoker
Alcohol: None
Drug: None
Personal:
Living: with family
Employment: Employed ([employer])
Family History
Family History: CAD; Negative Sudden
Review of Systems
Review of Systems
All Other Systems: ROS reviewed and negative except as documented in HPI and ROS
Phy Exam
Physical Exam
Physical Exam:
see hpi
Course
Orders/Labs/Results
Orders:
Orders
05/19/25 03:58
Electrocardiogram (*1) Urgent
Reason for Study: Abdominal Pain
EKG- Treatment ONCE
Sucralfate Suspension [Carafate Suspension] 1 gm PO NOW STA
05/19/25 04:15
Complete Blood Count/With Diff Urgent
Comprehensive Metabolic Panel Urgent
Lipase Urgent
Troponin I Urgent
Abnormal Lab Results
05/19/25
04:15
Absolute Monos (auto) 0.7 H 10^3/uL
(0.1-0.6)
Glucose 106 H mg/dl
(70-99)
05/19/25 04:15
05/19/25 04:15
Vital Signs
Initial and Last Documented VS:
Initial Vital Signs
Temp Pulse Resp BP Pulse Ox
98.5 F 77 16 146/78 98
05/19/25 03:22 05/19/25 03:22 05/19/25 03:22 05/19/25 03:22 05/19/25 03:22
Last Documented Vital Signs
Temp Pulse Resp BP Pulse Ox
98.5 F 59 18 129/85 99
05/19/25 03:22 05/19/25 05:39 05/19/25 05:39 05/19/25 05:41 05/19/25 05:41
*Pulse Oximetry
SaO2: 98
Oxygen Mode of Delivery: Room air
Patient hypoxic: no
*Critical Care Note
Total Time (30-74mins, 75-104mins- exclusive of procedures): Not Applicable
ED Attending Note
-
Portions of this chart may have been created with voice recognition software.� Occasional wrong word or��sound alike� substitutions may have occurred due to the inherent limitations of voice recognition software.
Discharge Plan
Departure
Patient Disposition: Home (Routine Discharge)
Date of Disposition: 05/19/25
Time of Disposition: 05:27
Patient with high blood pressure during this ER visit?: Yes
Condition: Good
Discharge Problem:
Acid reflux
Instructions: Acid reflux and GERD in adults, BLOOD PRESSURE
Prescriptions:
No Action
ferrous sulfate [FeroSul] 325 MG tablet
325 mg PO WE
acetaminophen [Tylenol 8 Hour] 650 mg Tablet Extended Release
650 mg PO DAILY
pantoprazole 40 mg Tablet,Delayed Release (Dr/Ec)
40 mg PO DAILY
propranolol 60 mg Capsule,Extended Release 24 Hr
60 mg PO HS
cholecalciferol (vitamin D3) [Vitamin D3] 25 mcg (1,000 unit) Capsule
25 mcg PO DAILY
polymyxin B sulf-trimethoprim Drops
1 drp OPHTHALMIC (EYE) DAILY
Referrals:
Aris Shaikh DO [Family Provider, Internal Medicine]
Ashley Sanders MD [Active, Gastroenterology] - Call in 1-3 days for appt
Activity Restrictions/Additional Instructions:
Please follow-up with Dr. Sanders and your primary care provider.
Please continue your Prilosec.
PLEASE RETURN EMERGENCY DEPARTMENT SHOULD YOU DEVELOP CHEST PAIN, SHORTNESS OF BREATH, DIZZINESS, LIGHTHEADEDNESS, RECTAL BLEEDING, DARK TARRY STOOLS, INTRACTABLE NAUSEA OR VOMITING, OR ANY OTHER SIGNS OR SYMPTOMS WORRISOME TO YOU.
Interventions
Interventions:
*Risk Screen - Suicide Last Done: 05/19/25 03:22
*General Assessment Last Done: 05/19/25 03:42
*Neglect/Abuse Screening Last Done: 05/19/25 03:42
*ED- Fall Risk Assessment Last Done: 05/19/25 03:42
*ED COVID-19 Vaccine History Last Done: 05/19/25 03:42
*Nursing Disposition Last Done: 05/19/25 05:44
ED-EENT Assessment Last Done: 05/19/25 03:42
ED- Pulmonary Assessment Last Done: 05/19/25 03:42
Discharge Date and Time
Discharge Date/Time: 05/19/25 05:52
Print Language: JAMAICAN
[2025-05-19] MEDS: CARAFATE SUSPENSION 1 GM PO (04:09)
[2025-05-19 04:25] LABS: Hematocrit 37.8 % (37.0-47.0); Hemoglobin 13.0 g/dL (12.0-16.0); Mean Corp Hgb Conc. 34.4 g/dL (33.0-37.0); Mean Corpuscular Volume 84.9 fL (81.0-99.0); Nucleated Red Blood Cells % 0 %; Platelet Count 273 10^3/uL (130-400); Red Cell Dist. Width 12.2 % (11.5-14.5)
[2025-05-19 04:50] LABS: ALT (SGPT) 20 U/L (0-35); AST (SGOT) 16 U/L (14-36); Albumin 4.2 g/dl (3.5-5.0); Alkaline Phosphatase 68 U/L (38-126); Blood Urea Nitrogen 14 mg/dl (7-17); Calcium 9.5 mg/dl (8.4-10.2); Carbon Dioxide 28 mmol/L (22-30); Chloride 107 mmol/L (98-107); Estimated Creatinine Clearance 95 ml/min; Glucose 106 mg/dl (70-99); Lipase 193 U/L (23-300); Potassium 4.0 mmol/L (3.5-5.1); Sodium 140 mmol/L (135-145); Total Protein 6.3 g/dl (6.3-8.2); eGFR > 60.00
[2025-05-19 05:00] VITALS: BP 133/88
[2025-05-19 05:01] LABS: Troponin I < 0.012 ng/ml
[2025-05-19 05:41] VITALS: BP 129/85
== END 2025-05-19 05:52 | disposition home or self-care (01) ==
LOC: EMR 03:11
PROVIDERS: Physician Assistant; EMERGENCY PHYSICIAN Student in an Organized Health Care Education/Training Program; FAMILY PHYSICIAN Internal Medicine
DX: K21.9 Gastro-esophageal reflux disease without esophagitis (principal); K90.0 Celiac disease; G47.33 Obstructive sleep apnea (adult) (pediatric); I10 Essential (primary) hypertension; E11.9 Type 2 diabetes mellitus without complications; Z79.899 Other long term (current) drug therapy; Z82.49 Family history of ischemic heart disease and other diseases of the circulatory system; Z87.442 Personal history of urinary calculi; Z90.49 Acquired absence of other specified parts of digestive tract
CPT/HCPCS: 99283; 80053; 83690; 84484; 85025; 93005

== ENCOUNTER 2025-06-06 14:10 | Emergency (ER) | payer BC, SELFPAY ==
[2025-06-06 14:12] VITALS: BP 137/74
--- NOTE | 2025-06-06 15:09 | ED.GENMED ---
History of Present Illness
General
Chief Complaint: Vaginal Bleeding
Source: patient
Exam Limitations: none
Time Seen by Provider: 06/06/25 14:55
History of Present Illness
History of Present Illness:
54yoF with a history of hypertension, hyperparathyroidism, celiac disease, PCOS, and kidney stones presenting for evaluation of vaginal bleeding. Patient has been experiencing vague low back discomfort and a 'weird feeling in her abdomen' for the
past several weeks. She describes a pressure in her suprapubic region. She urinated yesterday and noticed vaginal bleeding afterwards. She has been menopausal for the past 2 years. Bleeding is described as a light period and she has used 1 pad
so far today. She also is noticing some urinary leakage which she has had in the past. No saddle anesthesia or weakness/numbness in the lower extremities. She denies any issues with bowel movements, fevers, chills, chest pain, shortness of
breath, vomiting.
Past History
Past History
ED Past Medical History: HTN, Psychiatric (Anxiety) and Other (renal calc, neck/back pain, anemia, celiac disease, Sleep apnea, Hiatal hernia, Hypoparathyroid); Negative Hypercholesterolemia, IDDM or NIDDM
ED Past Surgical History: Cholecystectomy, Gynecological (D&C's), Urological (Ureteric stone removal 2000, [address]ley. Renal stent) and Other (partial parathyroidectomy)
Social History
Tobacco: Non-smoker
Alcohol: None
Drug: None
Personal:
Living: with family
Employment: Employed ([employer])
Family History
Family History: CAD; Negative Sudden
Phy Exam
General Physical Exam
General Presentation: well appearing and no apparent distress
General Skin: warm and dry
General Habitus: normal
General Mental: alert
ENT Exam
ENT Exam: normocephalic
Cardiovascular Exam
Cardiovascular Exam: regular rate/rhythm, no edema and no murmur
Pulmonary Exam
Pulmonary Exam: lungs clear, no respiratory distress, no rales, no crackles, no rhonchi and no wheezing
Gastrointestinal Exam
Gastrointestinal Exam: soft, non distended, no cva tenderness and other (Mild suprapubic and RLQ tenderness)
Neurological Exam
Neurological Exam: alert
Maris Coma Scale
Eye Opening: Spontaneous
Verbal Response: Oriented
Motor Response: Obeys Commands
GCS Total Score: 15
Skin Exam
Skin Exam: normal color and warm/dry
Psychiatric Exam
Psychiatric Exam: normal mood/affect
Course
Orders/Labs/Results
Orders:
Orders
06/06/25 15:09
Pelvis & Transvaginal US [US Pelvis W Transvag Combined] Urgent
Comment:
Reason For Exam: vaginal bleeding
06/06/25 15:53
Complete Blood Count/With Diff Urgent
Comprehensive Metabolic Panel Urgent
06/06/25 15:54
Urinalysis Reflex To Culture Urgent
Date Specimen was Collected: 06/06/25
Time Specimen was Collected: 15:54
Urine Microscopic Reflex Cult Urgent
Urine Culture Urgent
ELISHA Source: U
Specimen Description:
Date Specimen was Collected: 06/06/25
Time Specimen was Collected: 15:54
06/06/25 17:42
CT Abd/pelvis W Iv Cont Urgent
Comment:
Reason For Exam: lower abd/back pressure
Abnormal Lab Results
06/06/25 06/06/25
15:53 15:54
Absolute Monos (auto) 0.8 H 10^3/uL
(0.1-0.6)
Chloride 108 H mmol/L
(98-107)
Total Protein 6.1 L g/dl
(6.3-8.2)
Ur Occult Blood Reflex 4+ A
(Negative)
Leukocyte Esterase Rfl 1+ A
(Negative)
Urine Bacteria (Reflex) Few A
(Negative)
Urine Albumin (Reflex) 1+ A
(Neg - Trace)
06/06/25 15:53
06/06/25 15:53
Vital Signs
Initial and Last Documented VS:
Initial Vital Signs
Temp Pulse Resp BP Pulse Ox
98.2 F 83 16 137/74 98
06/06/25 14:12 06/06/25 14:12 06/06/25 14:12 06/06/25 14:12 06/06/25 14:12
Last Documented Vital Signs
Temp Pulse Resp BP Pulse Ox
98.2 F 73 16 128/74 97
06/06/25 14:12 06/06/25 17:18 06/06/25 14:12 06/06/25 19:47 06/06/25 18:06
MDM/Problems Addressed
Differential Diagnosis Includes:
54yoF here with with vaginal bleeding x 1 day. Postmenopausal. 1 pad so far today. Also c/o suprapubic pressure and back discomfort x several weeks. VSS. She is well appearing in no distress. No signs of peritonitis on abdominal exam. Differential
diagnosis includes but is not limited to: Endometrial hyperplasia, endometrial cancer, UTI, less likely appendicitis, less likely kidney stone
Initial ED plan: Check CBC, CMP, UA, and pelvic ultrasound.
*Pulse Oximetry
SaO2: 98
Oxygen Mode of Delivery: Room air
Patient hypoxic: no (98%)
*Critical Care Note
Total Time (30-74mins, 75-104mins- exclusive of procedures): Not Applicable
Update Note
Update Note:
Labs unremarkable including normal hemoglobin. No signs of infection on urinalysis. Pelvic ultrasound shows homogeneous endometrium measuring 0.6 cm. 'Findings most likely represent mild endometrial hyperplasia.' Patient also requesting CT scan
which was added. CT negative for acute findings. No indication for hospitalization. She does have an appointment with her hvac journeyman scheduled in 1 month. ED return precautions reviewed. Patient in agreement with plan and was discharged in
stable condition.
ED Attending Note
-
Portions of this chart may have been created with voice recognition software.� Occasional wrong word or��sound alike� substitutions may have occurred due to the inherent limitations of voice recognition software.
Discharge Plan
Departure
Patient Disposition: Home (Routine Discharge)
Date of Disposition: 06/06/25
Time of Disposition: 19:00
Patient with high blood pressure during this ER visit?: No
Discharge Problem:
Postmenopausal vaginal bleeding
Instructions: Abdominal pain in adults - Discharge instructions
Prescriptions:
No Action
ferrous sulfate [FeroSul] 325 MG tablet
325 mg PO WE
acetaminophen [Tylenol 8 Hour] 650 mg Tablet Extended Release
650 mg PO DAILY
pantoprazole 40 mg Tablet,Delayed Release (Dr/Ec)
40 mg PO DAILY
propranolol 60 mg Capsule,Extended Release 24 Hr
60 mg PO HS
cholecalciferol (vitamin D3) [Vitamin D3] 25 mcg (1,000 unit) Capsule
25 mcg PO DAILY
polymyxin B sulf-trimethoprim Drops
1 drp OPHTHALMIC (EYE) DAILY
Referrals:
UNKNOWN - PT NOT,INTERVIEWE [Unknown Provider]
Activity Restrictions/Additional Instructions:
Please follow-up with your hvac journeyman and family doctor. Return to the ER with any new or worsening symptoms.
Interventions
Interventions:
*Risk Screen - Suicide Last Done: 06/06/25 14:12
*General Assessment Last Done: 06/06/25 17:12
*Neglect/Abuse Screening Last Done: 06/06/25 14:12
*ED- Fall Risk Assessment Last Done: 06/06/25 17:12
*ED COVID-19 Vaccine History Last Done: 06/06/25 17:12
*Nursing Disposition Last Done: 06/06/25 19:56
ED-Female Genitourinary Assessment Last Done: 06/06/25 19:55
Discharge Date and Time
Discharge Date/Time: 06/06/25 19:57
Print Language: INDONESIAN
[2025-06-06 15:55] VITALS: BMI 29.7
[2025-06-06 16:07] LABS: Urine Character Clear (Clear)
[2025-06-06 16:20] LABS: Hematocrit 37.7 % (37.0-47.0); Hemoglobin 13.0 g/dL (12.0-16.0); Mean Corp Hgb Conc. 34.5 g/dL (33.0-37.0); Mean Corpuscular Volume 84.7 fL (81.0-99.0); Nucleated Red Blood Cells % 0 %; Platelet Count 325 10^3/uL (130-400); Red Cell Dist. Width 12.8 % (11.5-14.5)
[2025-06-06 16:21] LABS: ALT (SGPT) 19 U/L (0-35); AST (SGOT) 16 U/L (14-36); Albumin 4.1 g/dl (3.5-5.0); Alkaline Phosphatase 69 U/L (38-126); Blood Urea Nitrogen 13 mg/dl (7-17); Calcium 9.5 mg/dl (8.4-10.2); Carbon Dioxide 27 mmol/L (22-30); Chloride 108 mmol/L (98-107); Estimated Creatinine Clearance 73 ml/min; Glucose 99 mg/dl (70-99); Potassium 4.1 mmol/L (3.5-5.1); Sodium 140 mmol/L (135-145); Total Protein 6.1 g/dl (6.3-8.2); eGFR > 60.00
[2025-06-06 16:33] LABS: Urine Red Blood Cell 0-2 /HPF (0-2); Urine Squamous Cell 0-2 /LPF (Few); Urine Urothelial Cell 0-2 /LPF (FEW)
[2025-06-06 19:47] VITALS: BP 128/74
== END 2025-06-06 19:57 | disposition home or self-care (01) ==
LOC: EMR 14:10
PROVIDERS: Physician Assistant; EMERGENCY PHYSICIAN Emergency Medicine; FAMILY PHYSICIAN Internal Medicine
DX: N95.0 Postmenopausal bleeding (principal); I10 Essential (primary) hypertension; E21.3 Hyperparathyroidism, unspecified; E28.2 Polycystic ovarian syndrome; G47.30 Sleep apnea, unspecified; Z90.49 Acquired absence of other specified parts of digestive tract
CPT/HCPCS: 99284; 74177; 76830; 76856; 80053; 81003; 81015; 85025; 87086; Q9967

== ENCOUNTER → 2025-09-01 09:51 | Outpatient (REF) | payer BC, SELFPAY ==
[2025-09-01 11:24] LABS: ALT (SGPT) 29 U/L (0-35); AST (SGOT) 20 U/L (14-36); Albumin 4.6 g/dl (3.5-5.0); Alkaline Phosphatase 60 U/L (38-126); Blood Urea Nitrogen 10 mg/dl (7-17); Calcium 9.7 mg/dl (8.4-10.2); Carbon Dioxide 29 mmol/L (22-30); Chloride 103 mmol/L (98-107); Glucose 113 mg/dl (70-99); Potassium 4.3 mmol/L (3.5-5.1); Sodium 140 mmol/L (135-145); Total Protein 6.8 g/dl (6.3-8.2); eGFR > 60.00
[2025-09-01 11:39] LABS: FSH 23.0 mIU/ml
[2025-09-01 12:01] LABS: TSH 0.82 uIU/ml (0.47-4.68)
== END ==
LOC: REG 09:51
PROVIDERS: ATTENDING PHYSICIAN Internal Medicine; FAMILY PHYSICIAN Internal Medicine
DX: M17.0 Bilateral primary osteoarthritis of knee (principal); E03.9 Hypothyroidism, unspecified; E21.3 Hyperparathyroidism, unspecified; N93.9 Abnormal uterine and vaginal bleeding, unspecified
CPT/HCPCS: 36415; 73560; 73565; 80053; 82670; 83001; 83002; 83970; 84439; 84443